=== PATIENT | male | born 1940 | race Caucasian/White ===

== ENCOUNTER 2020-05-20 11:01 | Outpatient (REF) | payer OTHER, MEDICARE, SELFPAY ==
--- NOTE | 2020-05-20 10:30 | MR_ITS ---
EXAMINATION: MR LUMBAR SPINE WITHOUT CONTRAST CLINICAL INFORMATION: Lower back pain. Bilateral leg pain. COMPARISON: Lumbar spine MRI dated 03/30/2017. TECHNIQUE: MRI of the lumbar spine was obtained using routine sequences without contrast. FINDINGS: VERTEBRAL BODIES AND PARASPINAL STRUCTURES: There is trace anterolisthesis of L4 in relation to L5, unchanged when compared with the prior examination. Vertebral body heights are maintained. No compression deformity. Bone marrow signal intensity is within normal limits. There is minimal height loss of the L2-L3 and L3-L4 intervertebral discs. There is minimal height loss of the L5-S1 intervertebral disc. All lumbar intervertebral discs demonstrate partial desiccation. The paraspinal musculature is within normal limits. The visualized aorta is normal in caliber. CONUS MEDULLARIS AND CAUDA EQUINA: Normal, terminating at the level of L1-L2. The cauda equina nerve roots appear intrinsically normal. SPINAL LEVELS: T12-L1: There is a shallow disc bulge and moderate facet arthropathy. No central canal or foraminal narrowing. L1-L2: There is a shallow left foraminal disc protrusion superimposed on a shallow circumferential disc bulge. There is mild to moderate bilateral facet arthropathy. The central canal is widely patent. No foraminal stenosis. Findings are similar to the prior study. L2-L3: There is a large circumferential disc herniation superimposed on moderate facet degenerative disease. There is severe narrowing of the subarticular recesses with probable mass effect on the descending L3 nerve roots bilaterally. The central canal remains patent. There is mild right foraminal narrowing and minimal left foraminal narrowing. Findings are similar to the prior examination. L3-L4: There is a large circumferential disc herniation with a superimposed left foraminal disc protrusion. There is moderate facet arthropathy and mild ligamentous hypertrophy. There is severe narrowing of the subarticular recesses with mass effect on the descending left L4 nerve root. The central canal remains widely patent. There is moderate narrowing of the right neural foramen and mild to moderate narrowing of the left neural foramen. Findings appear similar to the prior exam. L4-L5: There is a circumferential disc herniation and severe facet arthropathy bilaterally. There are surgical changes status post left hemilaminectomy. The central canal remains patent. There is moderate to severe narrowing of the right neural foramen with mass effect on the traversing right L4 nerve root. There is mild narrowing of the left neural foramen. Findings are similar to the prior study. L5-S1: There is a circumferential disc herniation and extensive facet arthropathy, left greater than right. The central canal remains patent. There is mild right foraminal narrowing and mild left foraminal narrowing without nerve root compression. Findings are similar to the prior study. IMPRESSION: There is multilevel degenerative spondylosis of lumbar spine. Findings are similar to the prior examination dated 03/30/2017. No canal stenosis. There are varying degrees of foraminal stenosis as described. At L4 severe narrowing of the right neural foramen results in mass effect on the traversing right L4 nerve root. There is narrowing of the subarticular recesses at L2-L3 and L3-L4 resulting in probable mass effect on the the L3 and L4 nerve roots.
== END 2020-05-20 11:02 | disposition home or self-care (01) ==
LOC: HO.MRI 11:01
PROVIDERS: PCP Internal Medicine; Visit Provider Family Medicine
DX: M54.5 Low back pain (principal); M62.81 Muscle weakness (generalized)
CPT/HCPCS: 72148

== ENCOUNTER 2021-07-24 13:46 | Inpatient (IN) | payer MEDICARE, SELFPAY ==
--- NOTE | ~2021-07-24 | XR_ITS ---
EXAMINATION: XR CHEST CLINICAL INFORMATION: Generalized weakness COMPARISON: Chest 09/05/2019 TECHNIQUE: Frontal view of the chest was obtained. FINDINGS: The lungs are well-expanded with patchy opacity in left lung base. Heart size and pulmonary vascularity is normal. There are mediastinal [place] and median sternotomy sutures from previous intervention. There is a right central venous port with its tip in mid SVC XR/XR chest 1V IMPRESSION: Expanded lungs with left basilar atelectasis or scarring.
--- NOTE | ~2021-07-24 | MR_ITS ---
EXAMINATION: MRI OF THE BRAIN WITHOUT CONTRAST CLINICAL INFORMATION: Assess for cerebellar stroke. COMPARISON: CT scan of the head earlier 07/24/2021. TECHNIQUE: MRI of the brain was obtained using routine sequences without contrast. FINDINGS: No diffusion abnormalities are identified to suggest an acute or subacute infarct. No mass effect or midline shift is seen. The ventricles and sulci are commensurately prominent consistent with moderate diffuse volume loss. There are mild scattered areas of hyperintense T2 and FLAIR signal in the periventricular and subcortical white matter, consistent with chronic microvascular ischemic changes. 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 No extra-axial fluid collections are seen. The brainstem and cerebellum are normal. No pathologic magnetic susceptibility artifact is identified on the gradient refocused acquisition. The craniovertebral junction, marrow signal, and midline structures are normal. There is susceptibility artifact from ACDF hardware in the visualized cervical spine at C4-C5. The major intracranial flow-voids at the level of the jena of [place] are preserved; the paraclinoid vessels are slightly ectatic. The dural venous sinus flow-voids are maintained. There have been bilateral lens extractions. The mastoid air cells are well-aerated. There is a retention cyst in the anterior left maxillary sinus. MR/MR head/brain wo con IMPRESSION: 1. There are no acute bleeds or territorial infarcts. No masses are demonstrated. 2. 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 There is diffuse volume loss.
--- NOTE | ~2021-07-24 | CT_ITS ---
EXAMINATION: CT HEAD WITHOUT CONTRAST (STROKE PROTOCOL) CLINICAL INFORMATION: Rigors, disequilibrium, weak right side on clinical exam, uncertain chronicity/timing. COMPARISON: None TECHNIQUE: Contiguous axial imaging was performed from the skull base to vertex without intravenous administration of contrast. Axial images are provided. This CT examination was performed using dose optimization techniques as appropriate, variously including the following: *Automated exposure control *Adjustment of mA and/or kV according to patient size (this includes techniques or standardized protocols for targeted exams where dose is matched to indication/reason for exam; i.e. extremities or head) *Use of iterative reconstruction technique DLP: 717 mGy-cm FINDINGS: There is no intracranial hemorrhage, hematoma, or extra-axial fluid collection. There are generalized atrophic changes with mild prominence of the ventricles and prominent cortical sulci and fissures and cisterns. No mass effect or edema. The ordonez-white matter differentiation appears well preserved . There is scattered periventricular white matter gliosis. This is likely related to chronic small vessel ischemic changes. There are ectatic intracranial internal carotid arteries with atherosclerotic calcifications. There is no visible acute territorial infarct or mass lesion. The calvarium appears intact. There is no pneumocephalus or orbital emphysema. No air-fluid levels visualized sinuses or middle ears or mastoids. Retention cyst or polyp anterior medial left maxillary sinus 1 cm. Results called to emergency department, Ava Luque PA-C at [address]/CT head/brain wo con IMPRESSION: 1. No acute intracranial abnormality. 2. Generalized atrophic changes. 3. Periventricular white matter gliosis, likely chronic small vessel ischemic change.
[2021-07-24 14:05] VITALS: BP 118/60; BP 128/72; PULSE 100; PULSE 110; RESP 16; TEMP 37.7; O2SAT 95; O2SAT 96; BMI 29.9
--- NOTE | 2021-07-24 14:15 | PC.NURSE ---
Addendum entered by Sweta Sandoval 07/24/21 18:33: Pt also noted with dusky fingertips and increase cap refill to ble upper ext. Ivis CARBAJAL notified Original Note: Pt presents to ED with c/o tremors and generalized weakness. On assessment ? right lower leg weaker than left, upper ext equal. Pt states tremors increased last night but had tremors for awhile and unk when right lower ext weakness started. A fib on tele, rate 90-110s. Speech is clear.
--- NOTE | 2021-07-24 14:33 | ECG_ITS ---
Test Reason : WEAKNESS Blood Pressure : / mmHG Vent. Rate : 094 BPM Atrial Rate : 000 BPM P-R Int : 000 ms QRS Dur : 128 ms QT Int : 404 ms P-R-T Axes : 000 -27 024 degrees QTc Int : 505 ms Atrial fibrillation with premature ventricular or aberrantly conducted complexes (vs atrial flutter) Right bundle branch block Cannot rule out Inferior infarct (cited on or before 04-SEP-2019) Abnormal ECG When compared with ECG of 05-SEP-2019 09:41, Rhythm change Referred By: Mari Branch Electronically Signed By:LAUREN BRADY
[2021-07-24 15:13] LABS: MANUAL DIFF FLAG NO
[2021-07-24 15:13] LABS: Glucose, Whole Blood 93 mg/dL (60-115)
[2021-07-24 15:15] LABS: Basophils Percent Auto 0.4 % (0-2); Eosinophils Percent Auto 0.5 % (0-4); Hematocrit 32.5 % (42.0-52.0); Hemoglobin 10.2 g/dl (14.0-18.0); Imm Gran Abs Auto 0.04 X10*3/uL (0.00-0.03); Imm Gran Pct Auto 0.5 % (0.0-0.4); Lymphocytes Absolute Auto 0.6 X10*3/uL (1.2-4.9); Mean Corpuscular HGB Conc 31.4 g/dl (31.0-36.0); Mean Corpuscular Hemoglobin 30.4 pg (27.0-33.0); Mean Platelet Volume 11.1 fL (9.4-12.4); Monocytes Absolute Auto 0.6 X10*3/uL (0.1-1.2); Monocytes Percent Auto 7.7 % (2-11); Neutrophils Absolute Auto 6.6 x10*3/uL (2.0-8.3); Neutrophils Percent Auto 83.9 % (45-73); Platelet Count 104 X10*3/uL (160-400); Red Blood Count 3.35 X10*6/uL (4.60-5.80); Red Cell Distribution Width 23.5 % (11.0-16.0); White Blood Count 7.8 X10*3/uL (4.8-10.8)
[2021-07-24 15:28] LABS: Alanine Aminotransferase 15 U/L (0-40); Albumin Level 3.4 g/dL (3.5-5.0); Alkaline Phosphatase 87 U/L (39-117); Anion Gap 13 (12-20); Aspartate Amino Transferase 22 U/L (5-37); Bilirubin Direct 0.8 mg/dL (0.0-0.5); Bilirubin Total 1.8 mg/dL (0.0-1.0); Blood Urea Nitrogen 12 mg/dL (9-16); Calcium 8.7 mg/dL (8.4-10.2); Carbon Dioxide 29 mmol/L (22-29); Chloride 102 mmol/L (96-108); Creatinine Clr Calc Pharmacy 68.7; Estimated Glomerular Filt Rate > 60; Glucose Random 96 mg/dL (60-115); Magnesium 1.8 mg/dL (1.6-2.6); Potassium 3.5 mmol/L (3.3-5.1); Sodium 140 mmol/L (135-145); Total Protein 5.6 g/dL (6.5-8.0)
--- NOTE | 2021-07-24 15:32 | ED_ITS ---
HPI - Weakness General Chief complaint: Weakness Stated complaint: GENERAL WEAKNESS Time Seen by Provider: 07/24/21 14:32 Source: patient Mode of arrival: EMS Limitations: no limitations History of Present Illness HPI Narrative: 81-year-old male presents for general weakness and upper extremity tremors. Patient was treated with chemo and radiation for esophageal cancer, he stop treatment 1 month ago. States at 3:00 a.m. last night, he woke up and had shaking in both of his arms left arm greater than right. He felt lightheaded and weak but he was able to walk to the bathroom. He felt a sense of disequilibrium, but he did not fall, he did not strike his head. He denies weakness on 1 side or the other. Denies chest pain, shortness of breath, dyspnea on exertion, leg swelling, cough, urinary symptoms, headache, blurry vision, fever. States his PCP sent here to the emergency room today to determine cause of his rigors. Patient states that it was hard to eat because of burning with swallowing due to his esophageal cancer treatment, but about a week ago he started eating and drinking well. Patient's oncologist is at [facility]. Patient's last chemo was July 23, he has an appointment with Oncology August 15. 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 [facility], Dr Garcia, has an appointment August 06. He hs an implanted watchman device for his a fib Related Data Home Medications Medication Instructions Recorded Confirmed amiodarone 100 mg tablet 100 mg PO DAILY 09/30/20 09/30/20 aspirin 81 mg tablet,delayed 81 mg PO DAILY 09/30/20 09/30/20 release atorvastatin 80 mg tablet 80 mg PO BEDTIME 09/30/20 09/30/20 clopidogrel 75 mg tablet 75 mg PO DAILY 09/30/20 09/30/20 furosemide 20 mg tablet 20 mg PO DAILY 09/30/20 09/30/20 gabapentin 800 mg tablet 900 mg PO BEDTIME 09/30/20 09/30/20 metoprolol tartrate 50 mg tablet 50 mg PO BID 09/30/20 09/30/20 pantoprazole 20 mg tablet,delayed 20 mg PO DAILY 09/30/20 09/30/20 release spironolactone 25 mg tablet 25 mg PO DAILY 09/30/20 09/30/20 Allergies Allergy/AdvReac Type Severity Reaction Status Date / Time niacin AdvReac Mild skin Verified 07/24/21 15:31 flushing tamsulosin [From Flomax] AdvReac Mild sweating Verified 07/24/21 15:31 Review of Systems Constitutional: Constitutional: Denies body ache(s), Denies chills, Reports fatigue, Denies fever(s), Denies headache(s), Denies malaise and Reports we akness Eyes: Eyes: Denies blurry vision and Denies diplopia ENT: Denies vertigo, Denies dizziness, Denies otalgia, Denies headache(s), Denies mouth pain, Reports disequilibrium, Denies post nasal drip, Denies sinus pain, Denies sinus pressure, Denies sore throat and Denies throat swelling Cardiovascular: Cardiovascular: Denies chest pain, Denies syncope, Denies leg edema, Denies lightheadedness, Denies Loss of Consciousness, Denies palpitations and Denies dyspnea Respiratory: Respiratory: Denies chest congestion, Denies cough and Denies dyspnea Gastrointestinal: Gastrointestinal: Denies abdominal pain, Denies hematochezia, Denies constipation, Denies diarrhea, Denies nausea and Denies vomiting Genitourinary: Genitourinary: Denies hematuria and Denies dysuria Musculoskeletal: Musculoskeletal: Reports no additional musculoskeletal compl aints and Denies numbness Neurologic: Denies Abnormal speech present, Denies confusion, Denies vertigo, Denies dizziness, Denies syncope, Denies headache(s), Denies focal weakness, Denies numbness, Denies Sensory deficit (Neuro), Reports tremor(s), Reports disequilibrium and Reports weakness Psychiatric: Psychiatric: Denies anxiety, Denies confusion and Denies depression Endocrine: Endocrine: Reports fatigue and Denies palpitations Allergic/Immunologic: Allergic/Immunologic: Denies throat swelling PMFSH Past Medical History Source: unable to obtain Medical History (Updated 07/24/21 @ 20:13 by RAVEN Dang) A-fib CAD (coronary artery disease) GERD (gastroesophageal reflux disease) History of kidney stones HTN (hypertension) Hyperlipidemia Prostate cancer Sleep apnea Tubular adenoma Surgical History H/O cervical spine surgery History of hydrocelectomy Hx of cataract surgery Hx of cholecystectomy Hx of knee surgery Hx of tonsillectomy Hx of vasectomy Family History Family History Mother Colon cancer Sister Colon cancer Social History Social History Alcohol intake: former Patient Tobacco Use Status: Former Tobacco user Use of substances other than those prescribed or required for medical reasons: No Advance Directives: No Advance Directives Information Provided: Yes Physical Exam Vital Signs: Vital Signs: Last Vital Signs Temp 99.8 F 07/24/21 14:05 Pulse 88 07/24/21 18:37 Resp 16 07/24/21 18:37 BP 131/70 07/24/21 18:37 Pulse Ox 98 07/24/21 18:37 BMI result Body Mass Index 29.9 Const: General: comfortable, no acute distress, alert and awake; No confusion Nutritional Appearance: obese Orientation/consciousness: patient oriented x3 and No confusion Limitations: no limitations HENMT: Head: Yes normal to inspection, Yes normocephalic and Yes atraumatic Ears: hearing grossly normal bilaterally, external ears normal, TM's normal bilaterally and EAC's normal General nose exam: Normal external nose present Face and sinus: Yes normal facial exam and Yes sinuses nontender Mouth: Normal oral and palatal mucosa present Throat: Yes posterior oropharynx normal Eyes: Conjunctivae: conjunctivae normal Pupils: Equal, round and reactive pupils present EOM: EOMs intact bilaterally and No Nystagmus present Neck: Neck: Yes full ROM, Yes no lymphadenopathy and Yes supple Resp: Effort & Inspection: normal respiratory effort and able to speak in complete sentences Auscultation: clear to auscultation bilaterally, no crackles, no rales, no rhonchi and no wheezes Cardio: Rate: regular rate Rhythm: regular rhythm Heart sounds: S1 normal heart sound present and S2 normal heart sound present GI: Inspection: Yes normal to inspection Palpation (GI): Soft to palpation, nontender, no guarding and not rigid Percussion: Yes normal to percussion Auscultation: normal bowel sounds Skin: General skin exam: no rashes or lesions noted Neuro: General: patient oriented x3, No confusion and Unable to assess gait Cranial nerves: Yes CN's II-XII intact bilaterally, Yes Facial sensation intact/muscles of mastication intact, Yes Equal, round and reactive pupils present, Yes Bilaterally intact EOM present, Yes Nystagmus not present, Yes Normal facial strength present, Yes Midline tongue present, Yes Ability to bilaterally rotate head present, Yes Ability to bilaterally elevate shoulders present and No Nystagmus present Cognition (Neuro): normal cognition Speech: No Abnormal speech present Gait exam (Neuro): Unable to assess gait Motor exam (neuro): Abnormal motor strength present (4/5 right UE, 1/5 right LE), Tremors during motor activity present (bilateral UE) and Motor abnormalites present Sensory Exam: No Sensory deficit (Neuro) Deep tendon reflexes (DTR's): Right patellar reflex intensity grade: 1+ and Left patellar reflex intensity grade: 1+ Coordination: [id number] test normal Romberg Test: Negative Pupils: Normal pupillary reactivity/response: bilateral Extrem: General: Yes normal to inspection and Yes full ROM Psych: Appearance: grossly normal Affect: normal affect Attitude: cooperative Thought process: Normal thought process present Course Course Course Narrative: I evaluated this patient at 15:10 81-year-old male with past medical history of esophageal cancer who just compl eted chemo and radiation 1 month ago, atrial fibrillation, and coronary artery disease with CABG, who is beta blocked and on Plavix and aspirin, presents for evaluation of rigors. On exam, patient is found to have right leg weakness, he cannot hold his right leg up against gravity, and mild right upper extremity weakness. Patient also has occasional jerks of his upper extremities and has a fine tremor in his left upper extremity. No other focal neurological deficits. Patient did not present complaining of weakness and denied weakness on 1 side or the other. Will get head CT and MRI, I had originally ordered head CT and CTA head and neck, but spoke to Dr Quiroz, who said a head CT and MRI would be sufficient to start work up for stroke. Upon discovery of right lower extremity weakness, patient cannot say when this weakness started. He was unaware that he was weak on his right side. Reevaluation(s) Reevaluation #1: Patient's EKG shows no acute ischemia, troponin is elevated is 63.1. No chest pain. Will repeat troponin in 3 hours Patient is mildly anemic at H&H of 10.2 and 32.5, platelets 104. Patient's lactic acid is 2.4. Chest x-ray negative, COVID negative Head CT shows no bleed, no acute stroke, general a trophic changes . Awaiting MRI and urine Reevaluation #2: MR/MR head/brain wo con IMPRESSION: 1. There are no acute bleeds or territorial infarcts. No masses are demonstrated. ? 2. 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 There is diffuse volume loss. Spoke to [facility] regarding patient, patient has no leukocytosis, is not neutropenic. Oncology did not think this was related to cancer. Awaiting urine Urine positive for UTI Repet fatou loyaws no 3 hour delta change; toponin was 63.1, now is 76.3. Repeat lactic is 1.3 Pt is admoitted by Dr Gauthier ? MDM - Weakness Lab Data Result diagrams: 07/24/21 14:58 07/24/21 14:58 Labs: Lab Results 07/24/21 07/24/21 07/24/21 Range/Units 14:58 14:58 14:58 WBC 7.8 (4.8-10.8) X10*3/uL RBC 3.35 L (4.60-5.80) X10*6/uL Hgb 10.2 L (14.0-18.0) g/dl Hct 32.5 L (42.0-52.0) % MCV 97.0 (80.0-98.0) fL MCH 30.4 (27.0-33.0) pg MCHC 31.4 (31.0-36.0) g/dl RDW 23.5 H (11.0-16.0) % Plt Count 104 L (160-400) X10*3/uL MPV 11.1 (9.4-12.4) fL Immature Gran % (Auto) 0.5 H (0.0-0.4) % Neut % (Auto) 83.9 H (45-73) % Lymph % (Auto) 7.0 L (20-40) % [place] % (Auto) 7.7 (2-11) % Eos % (Auto) 0.5 (0-4) % Baso % (Auto) 0.4 (0-2) % Lymph # (Auto) 0.6 L (1.2-4.9) X10*3/uL [place] # (Auto) 0.6 (0.1-1.2) X10*3/uL Eos # (Auto) 0.0 (0.0-0.4) X10*3/uL Baso # (Auto) 0.0 (0.0-0.2) X10*3/uL Abs Immat Gran (auto) 0.04 H (0.00-0.03) X10*3/uL Absolute Neuts (auto) 6.6 (2.0-8.3) x10*3/uL Absolute Nucleated RBC 0.000 (0.0-0.012) X10*3/uL Nucleated RBC % (auto) 0.0 (0.0-0.2) /100WBC PT (9.9-13.0) SEC INR (0.9-1.1) APTT (24.1-38.0) SEC Sodium 140 (135-145) mmol/L Potassium 3.5 (3.3-5.1) mmol/L Chloride 102 (96-108) mmol/L Carbon Dioxide 29 (22-29) mmol/L Anion Gap 13 (12-20) BUN 12 (9-16) mg/dL Creatinine 0.80 (0.5-1.4) mg/dL Estim Creat Clear Calc 68.7 Estimated GFR > 60 POC Glucose (60-115) mg/dL Random Glucose 96 (60-115) mg/dL Lactic Acid (0.5-2.0) mmol/L Lactic Acid F/U @ 2Hr (0.5-2.0) mmol/L Calcium 8.7 (8.4-10.2) mg/dL Phosphorus (2.7-4.5) mg/dL Magnesium 1.8 (1.6-2.6) mg/dL Total Bilirubin 1.8 H (0.0-1.0) mg/dL Direct Bilirubin 0.8 H (0.0-0.5) mg/dL AST 22 (5-37) U/L ALT 15 (0-40) U/L Alkaline Phosphatase 87 (39-117) U/L Troponin I High Sens (<3.5-35.0) ng/L Total Protein 5.6 L (6.5-8.0) g/dL Albumin 3.4 L (3.5-5.0) g/dL Urine Color Urine Appearance Urine pH (5.0-8.0) Ur Specific [place] (1.005-1.025) Urine Protein (NEG-TRACE) MG/DL Urine Glucose (UA) (NEG) MG/DL Urine Ketones (NEG) MG/DL Urine Blood (NEG) Urine Nitrite (NEG) Ur Leukocyte Esterase (NEG) Urine RBC (0) /HPF Urine WBC (0-4) /HPF Ur Squamous Epith Cells /LPF Urine Bacteria /LPF COVID-19 (JONO) Negative (Negative) COVID-19 Clin Com See Note 07/24/21 07/24/21 07/24/21 Range/Units 15:10 16:43 16:43 WBC (4.8-10.8) X10*3/uL RBC (4.60-5.80) X10*6/uL Hgb (14.0-18.0) g/dl Hct (42.0-52.0) % MCV (80.0-98.0) fL MCH (27.0-33.0) pg MCHC (31.0-36.0) g/dl RDW (11.0-16.0) % Plt Count (160-400) X10*3/uL MPV (9.4-12.4) fL Immature Gran % (Auto) (0.0-0.4) % Neut % (Auto) (45-73) % Lymph % (Auto) (20-40) % [place] % (Auto) (2-11) % Eos % (Auto) (0-4) % Baso % (Auto) (0-2) % Lymph # (Auto) (1.2-4.9) X10*3/uL [place] # (Auto) (0.1-1.2) X10*3/uL Eos # (Auto) (0.0-0.4) X10*3/uL Baso # (Auto) (0.0-0.2) X10*3/uL Abs Immat Gran (auto) (0.00-0.03) X10*3/uL Absolute Neuts (auto) (2.0-8.3) x10*3/uL Absolute Nucleated RBC (0.0-0.012) X10*3/uL Nucleated RBC % (auto) (0.0-0.2) /100WBC PT (9.9-13.0) SEC INR (0.9-1.1) APTT (24.1-38.0) SEC Sodium (135-145) mmol/L Potassium (3.3-5.1) mmol/L Chloride (96-108) mmol/L Carbon Dioxide (22-29) mmol/L Anion Gap (12-20) BUN (9-16) mg/dL Creatinine (0.5-1.4) mg/dL Estim Creat Clear Calc Estimated GFR POC Glucose 93 (60-115) mg/dL Random Glucose (60-115) mg/dL Lactic Acid 2.4 H* (0.5-2.0) mmol/L Lactic Acid F/U @ 2Hr (0.5-2.0) mmol/L Calcium (8.4-10.2) mg/dL Phosphorus (2.7-4.5) mg/dL Magnesium (1.6-2.6) mg/dL Total Bilirubin (0.0-1.0) mg/dL Direct Bilirubin (0.0-0.5) mg/dL AST (5-37) U/L ALT (0-40) U/L Alkaline Phosphatase (39-117) U/L Troponin I High Sens 63.1 H (<3.5-35.0) ng/L Total Protein (6.5-8.0) g/dL Albumin (3.5-5.0) g/dL Urine Color Urine Appearance Urine pH (5.0-8.0) Ur Specific [place] (1.005-1.025) Urine Protein (NEG-TRACE) MG/DL Urine Glucose (UA) (NEG) MG/DL Urine Ketones (NEG) MG/DL Urine Blood (NEG) Urine Nitrite (NEG) Ur Leukocyte Esterase (NEG) Urine RBC (0) /HPF Urine WBC (0-4) /HPF Ur Squamous Epith Cells /LPF Urine Bacteria /LPF COVID-19 (JONO) (Negative) COVID-19 Clin Com 07/24/21 07/24/21 07/24/21 Range/Units 19:18 19:18 19:18 WBC (4.8-10.8) X10*3/uL RBC (4.60-5.80) X10*6/uL Hgb (14.0-18.0) g/dl Hct (42.0-52.0) % MCV (80.0-98.0) fL MCH (27.0-33.0) pg MCHC (31.0-36.0) g/dl RDW (11.0-16.0) % Plt Count (160-400) X10*3/uL MPV (9.4-12.4) fL Immature Gran % (Auto) (0.0-0.4) % Neut % (Auto) (45-73) % Lymph % (Auto) (20-40) % [place] % (Auto) (2-11) % Eos % (Auto) (0-4) % Baso % (Auto) (0-2) % Lymph # (Auto) (1.2-4.9) X10*3/uL [place] # (Auto) (0.1-1.2) X10*3/uL Eos # (Auto) (0.0-0.4) X10*3/uL Baso # (Auto) (0.0-0.2) X10*3/uL Abs Immat Gran (auto) (0.00-0.03) X10*3/uL Absolute Neuts (auto) (2.0-8.3) x10*3/uL Absolute Nucleated RBC (0.0-0.012) X10*3/uL Nucleated RBC % (auto) (0.0-0.2) /100WBC PT 14.6 H (9.9-13.0) SEC INR 1.3 H (0.9-1.1) APTT 32.1 (24.1-38.0) SEC Sodium (135-145) mmol/L Potassium (3.3-5.1) mmol/L Chloride (96-108) mmol/L Carbon Dioxide (22-29) mmol/L Anion Gap (12-20) BUN (9-16) mg/dL Creatinine (0.5-1.4) mg/dL Estim Creat Clear Calc Estimated GFR POC Glucose (60-115) mg/dL Random Glucose (60-115) mg/dL Lactic Acid (0.5-2.0) mmol/L Lactic Acid F/U @ 2Hr 1.3 (0.5-2.0) mmol/L Calcium (8.4-10.2) mg/dL Phosphorus 2.9 (2.7-4.5) mg/dL Magnesium (1.6-2.6) mg/dL Total Bilirubin (0.0-1.0) mg/dL Direct Bilirubin (0.0-0.5) mg/dL AST (5-37) U/L ALT (0-40) U/L Alkaline Phosphatase (39-117) U/L Troponin I High Sens (<3.5-35.0) ng/L Total Protein (6.5-8.0) g/dL Albumin (3.5-5.0) g/dL Urine Color Urine Appearance Urine pH (5.0-8.0) Ur Specific [place] (1.005-1.025) Urine Protein (NEG-TRACE) MG/DL Urine Glucose (UA) (NEG) MG/DL Urine Ketones (NEG) MG/DL Urine Blood (NEG) Urine Nitrite (NEG) Ur Leukocyte Esterase (NEG) Urine RBC (0) /HPF Urine WBC (0-4) /HPF Ur Squamous Epith Cells /LPF Urine Bacteria /LPF COVID-19 (JONO) (Negative) COVID-19 Clin Com 07/24/21 07/24/21 Range/Units 19:18 19:47 WBC (4.8-10.8) X10*3/uL RBC (4.60-5.80) X10*6/uL Hgb (14.0-18.0) g/dl Hct (42.0-52.0) % MCV (80.0-98.0) fL MCH (27.0-33.0) pg MCHC (31.0-36.0) g/dl RDW (11.0-16.0) % Plt Count (160-400) X10*3/uL MPV (9.4-12.4) fL Immature Gran % (Auto) (0.0-0.4) % Neut % (Auto) (45-73) % Lymph % (Auto) (20-40) % [place] % (Auto) (2-11) % Eos % (Auto) (0-4) % Baso % (Auto) (0-2) % Lymph # (Auto) (1.2-4.9) X10*3/uL [place] # (Auto) (0.1-1.2) X10*3/uL Eos # (Auto) (0.0-0.4) X10*3/uL Baso # (Auto) (0.0-0.2) X10*3/uL Abs Immat Gran (auto) (0.00-0.03) X10*3/uL Absolute Neuts (auto) (2.0-8.3) x10*3/uL Absolute Nucleated RBC (0.0-0.012) X10*3/uL Nucleated RBC % (auto) (0.0-0.2) /100WBC PT (9.9-13.0) SEC INR (0.9-1.1) APTT (24.1-38.0) SEC Sodium (135-145) mmol/L Potassium (3.3-5.1) mmol/L Chloride (96-108) mmol/L Carbon Dioxide (22-29) mmol/L Anion Gap (12-20) BUN (9-16) mg/dL Creatinine (0.5-1.4) mg/dL Estim Creat Clear Calc Estimated GFR POC Glucose (60-115) mg/dL Random Glucose (60-115) mg/dL Lactic Acid (0.5-2.0) mmol/L Lactic Acid F/U @ 2Hr (0.5-2.0) mmol/L Calcium (8.4-10.2) mg/dL Phosphorus (2.7-4.5) mg/dL Magnesium (1.6-2.6) mg/dL Total Bilirubin (0.0-1.0) mg/dL Direct Bilirubin (0.0-0.5) mg/dL AST (5-37) U/L ALT (0-40) U/L Alkaline Phosphatase (39-117) U/L Troponin I High Sens 76.3 H (<3.5-35.0) ng/L Total Protein (6.5-8.0) g/dL Albumin (3.5-5.0) g/dL Urine Color YELLOW Urine Appearance CLOUDY Urine pH 6.0 (5.0-8.0) Ur Specific [place] 1.020 (1.005-1.025) Urine Protein 1+ H (NEG-TRACE) MG/DL Urine Glucose (UA) NEG (NEG) MG/DL Urine Ketones NEG (NEG) MG/DL Urine Blood 1+ H (NEG) Urine Nitrite POS H (NEG) Ur Leukocyte Esterase 3+ H (NEG) Urine RBC 0-2 (0) /HPF Urine WBC 30-49 H (0-4) /HPF Ur Squamous Epith Cells NONE /LPF Urine Bacteria 3+ /LPF COVID-19 ([facility]ONO) (Negative) COVID-19 Clin Com ECG Data Interpretation: Atrial fibrillation with a ventricular rate of 94. QRS 128, QTC 505, right bundle branch block, PVCs, no acute ischemia Discharge Plan Discharge Clinical Impression: Acute UTI, Weakness Patient Disposition: Admitted As Inpatient
[2021-07-24 15:34] LABS: COVID-19 Test Negative (Negative)
--- NOTE | 2021-07-24 16:00 | PC.NURSE ---
Pt to have MRI, however serial number need for implanted watchman device
[2021-07-24 16:14] VITALS: BP 131/57; PULSE 94; RESP 18; O2SAT 96
--- NOTE | 2021-07-24 16:19 | PC.NURSE ---
Serial number [id number] MRI aware
--- NOTE | 2021-07-24 16:57 | PC.NURSE ---
Difficult stick, phelbotomy called to assist with blood cx,lactic and coags
[2021-07-24 17:04] LABS: Lactic Acid 2.4 mmol/L (0.5-2.0)
--- NOTE | 2021-07-24 17:08 | PC.NURSE ---
Of unit to MRI at this time
[2021-07-24 17:13] LABS: Troponin-I High Sensitivity 63.1 ng/L (<3.5-35.0)
[2021-07-24] MEDS: 0.9 % Sodium Chloride 1,000 ML 999 ML IV (18:33)
[2021-07-24 18:37] VITALS: BP 131/70; PULSE 88; RESP 16; O2SAT 98
[2021-07-24 18:47] LABS: Reflex Lactate? Lactic Acid Added
[2021-07-24 19:39] LABS: INTERNATIONAL NORM RATIO 1.3 (0.9-1.1); Prothrombin Time 14.6 SEC (9.9-13.0)
[2021-07-24 19:42] LABS: Partial Thromboplastin Time 32.1 SEC (24.1-38.0)
[2021-07-24 19:46] LABS: ~Lactic Acid-LAB USE ONLY 1.3 mmol/L (0.5-2.0)
[2021-07-24 19:49] LABS: Phosphorus 2.9 mg/dL (2.7-4.5)
[2021-07-24 19:55] LABS: Appearance Urine CLOUDY; Color Urine YELLOW; Glucose Urine UA NEG (NEG); Leukocyte Esterase Urine 3+ (NEG); Nitrite Urine POS (NEG); UACC Culture Trigger YES; Urine Blood 1+ (NEG); Urine Ketones NEG (NEG); Urine Protein 1+ MG/DL (NEG-TRACE)
[2021-07-24 19:55] LABS: Troponin-I High Sensitivity 76.3 ng/L (<3.5-35.0)
[2021-07-24 20:03] LABS: Bacteria Urine 3+ /LPF; RBC Urine 0-2 /HPF (0); WBC Urine 30-49 /HPF (0-4)
[2021-07-24] MEDS: cefTRIAXone sodium 1 GM in 0.9 % Sodium Chloride 50 ML IV (20:46)
--- NOTE | 2021-07-24 21:10 | PHA.MEDREC ---
MED REC COMPLETE, NO ISSUES PATIENT GETS MOST OF HIS MEDICATIONS FROM [facility] Pharmacy Consult ? Medication Reconciliation Pharmacy has completed the medication reconciliation.
--- NOTE | 2021-07-24 22:11 | PM.IMHP ---
History of Present Illness Date of Service: 07/24/21 Chief Complaint: Chills and rigors 81-year-old male with a past medical history of hypertension, hyperlipidemia, CAD status post CABG, AFib status post Watchman procedure-not on anticoagulation, history of esophageal cancer status post chemo and radiotherapy-> last given on June 23, 2021; presented to the hospital today with a chief complaint of chills and rigors. Patient reports that he was doing fine until yesterday; this morning he woke up and noted to have chills and rigors; not feeling well; subsequently came to the ER for further evaluation. Denies any fevers or cough. Denies any urinary frequency or urgency. Denies any abdominal pain, nausea, vomiting. Also reported that he was on steady initially at home but denies any falls or trauma. Patient reports that he recently started to eat, and has been tolerating p.o. without any difficulty. Denies any concerns for aspiration. Denies any numbness tingling or focal weakness Denies any chest pain palpitations lightheadedness or dizziness. Review of all other systems is negative except mentioned above ER course: Per ER team PA mentioned thatinitially on presentation there were concerns for mild right-sided weakness; which subsequently improved when examined with the attending in the ER; patient had brain MRI done which showed no acute findings; urinalysis was abnormal consistent with UTI; given ceftriaxone. Admitted for further management. EKG nonischemic. Troponins were indeterminate. Admitted for further management [facility] Medical History (Updated 07/24/21 @ 20:13 by RAVEN Dang) A-fib CAD (coronary artery disease) GERD (gastroesophageal reflux disease) History of kidney stones HTN (hypertension) Hyperlipidemia Prostate cancer Sleep apnea Tubular adenoma Family History Mother Colon cancer Sister Colon cancer Pertinent family history: As mentioned above Surgical History H/O cervical spine surgery History of hydrocelectomy Hx of cataract surgery Hx of cholecystectomy Hx of knee surgery Hx of tonsillectomy Hx of vasectomy Social History Alcohol intake: former Patient Tobacco Use Status: Former Tobacco user Use of substances other than those prescribed or required for medical reasons: No Advance Directives: No Advance Directives Information Provided: Yes Meds Allergies Allergy/AdvReac Type Severity Reaction Status Date / Time niacin AdvReac Mild skin Verified 07/24/21 15:31 flushing tamsulosin [From Flomax] AdvReac Mild sweating Verified 07/24/21 15:31 Active Medications: Current Medications Acetaminophen (Acetaminophen 325 Mg Tablet) 650 mg PO Q6H PRN PRN Reason: Pain, Mild (Pain Scale 1-3) Ceftriaxone Sodium 1 gm/ (Sodium Chloride) 50 mls @ 100 mls/hr IV Q24H [facility] Melatonin (Melatonin 3 Mg Tablet) 6 mg PO BEDTIME PRN PRN Reason: Insomnia Senna (Sennosides 8.6 Mg Tablet) 17.2 mg PO BEDTIME PRN PRN Reason: Constipation Sodium Chloride (0.9 % Sodium Chloride Flush 3 Ml Syringe) 3 ml IVFLUSH QSHIFT [facility] Home Medications Medication Instructions Recorded Confirmed Last Taken Type aspirin 81 mg tablet,delayed 81 mg PO DAILY 09/30/20 07/24/21 07/24/21 History release atorvastatin 80 mg tablet 80 mg PO BEDTIME 09/30/20 07/24/21 Unknown History clopidogrel 75 mg tablet 75 mg PO DAILY 09/30/20 07/24/21 07/24/21 History furosemide 20 mg tablet 20 mg PO DAILY 09/30/20 07/24/21 07/24/21 History gabapentin 300 mg capsule 300 mg PO DAILY 07/24/21 07/24/21 07/24/21 History gabapentin 300 mg capsule 900 mg PO BEDTIME 07/24/21 07/24/21 Unknown History isosorbide mononitrate 30 mg 30 mg PO DAILY 07/24/21 07/24/21 07/24/21 History tablet,extended release 24 hr magnesium oxide 500 mg capsule 500 mg PO DAILY 07/24/21 07/24/21 07/24/21 History metoprolol succinate 25 mg 25 mg PO BID 07/24/21 07/24/21 07/24/21 History tablet,extended release 24 hr pantoprazole 40 mg tablet,delayed 40 mg PO DAILY@0630 07/24/21 07/24/21 07/24/21 History release tramadol 50 mg tablet 50 mg PO Q6H PRN 07/24/21 07/24/21 Unknown History Physical Exam Vital Signs and Narrative: Vital Signs: Last Vital Signs Temp 99.8 F 07/24/21 14:05 Pulse 88 07/24/21 18:37 Resp 16 07/24/21 18:37 BP 131/70 07/24/21 18:37 Pulse Ox 98 07/24/21 18:37 BMI result Body Mass Index 29.9 Gen: Appears be in no acute distress HEENT: NCAT, Moist mucosa. Pulmonary: Vesicular breath sounds, fair air entry CVS: Normal S1-S2 Abdomen: BS+, Soft, Nontender Extremities: Warm well perfused Neuro: Alert and awake. Grossly nonfocal; no cerebellar signs. Results Labs CBC and Chem 7: 07/24/21 14:58 07/24/21 14:58 Labs: Laboratory Results - last 24 hr 07/24/21 07/24/21 07/24/21 14:58 14:58 14:58 MCV 97.0 MCH 30.4 MCHC 31.4 RDW 23.5 H Plt Count 104 L MPV 11.1 Immature Gran % (Auto) 0.5 H Neut % (Auto) 83.9 H Lymph % (Auto) 7.0 L [place] % (Auto) 7.7 Eos % (Auto) 0.5 Baso % (Auto) 0.4 Lymph # (Auto) 0.6 L [place] # (Auto) 0.6 Eos # (Auto) 0.0 Baso # (Auto) 0.0 Abs Immat Gran (auto) 0.04 H Absolute Neuts (auto) 6.6 Absolute Nucleated RBC 0.000 Nucleated RBC % (auto) 0.0 PT INR APTT Anion Gap 13 Estim Creat Clear Calc 68.7 Estimated GFR > 60 POC Glucose Random Glucose 96 Lactic Acid Lactic Acid F/U @ 2Hr Calcium 8.7 Phosphorus Magnesium 1.8 Total Bilirubin 1.8 H Direct Bilirubin 0.8 H AST 22 ALT 15 Alkaline Phosphatase 87 Troponin I High Sens Total Protein 5.6 L Albumin 3.4 L Urine Color Urine Appearance Urine pH Ur Specific [place] Urine Protein Urine Glucose (UA) Urine Ketones Urine Blood Urine Nitrite Ur Leukocyte Esterase Urine RBC Urine WBC Ur Squamous Epith Cells Urine Bacteria COVID-19 (JONO) Negative COVID-19 Clin Com See Note 07/24/21 07/24/21 07/24/21 15:10 16:43 16:43 MCV MCH MCHC RDW Plt Count MPV Immature Gran % (Auto) Neut % (Auto) Lymph % (Auto) [place] % (Auto) Eos % (Auto) Baso % (Auto) Lymph # (Auto) [place] # (Auto) Eos # (Auto) Baso # (Auto) Abs Immat Gran (auto) Absolute Neuts (auto) Absolute Nucleated RBC Nucleated RBC % (auto) PT INR APTT Anion Gap Estim Creat Clear Calc Estimated GFR POC Glucose 93 Random Glucose Lactic Acid 2.4 H* Lactic Acid F/U @ 2Hr Calcium Phosphorus Magnesium Total Bilirubin Direct Bilirubin AST ALT Alkaline Phosphatase Troponin I High Sens 63.1 H Total Protein Albumin Urine Color Urine Appearance Urine pH Ur Specific [place] Urine Protein Urine Glucose (UA) Urine Ketones Urine Blood Urine Nitrite Ur Leukocyte Esterase Urine RBC Urine WBC Ur Squamous Epith Cells Urine Bacteria COVID-19 (JONO) COVID-19 [employer] 07/24/21 07/24/21 07/24/21 19:18 19:18 19:18 MCV MCH MCHC RDW Plt Count MPV Immature Gran % (Auto) Neut % (Auto) Lymph % (Auto) [place] % (Auto) Eos % (Auto) Baso % (Auto) Lymph # (Auto) [place] # (Auto) Eos # (Auto) Baso # (Auto) Abs Immat Gran (auto) Absolute Neuts (auto) Absolute Nucleated RBC Nucleated RBC % (auto) PT 14.6 H INR 1.3 H APTT 32.1 Anion Gap Estim Creat Clear Calc Estimated GFR POC Glucose Random Glucose Lactic Acid Lactic Acid F/U @ 2Hr 1.3 Calcium Phosphorus 2.9 Magnesium Total Bilirubin Direct Bilirubin AST ALT Alkaline Phosphatase Troponin I High Sens Total Protein Albumin Urine Color Urine Appearance Urine pH Ur Specific [place] Urine Protein Urine Glucose (UA) Urine Ketones Urine Blood Urine Nitrite Ur Leukocyte Esterase Urine RBC Urine WBC Ur Squamous Epith Cells Urine Bacteria COVID-19 (JONO) COVID-19 [employer] Com 07/24/21 07/24/21 19:18 19:47 MCV MCH MCHC RDW Plt Count MPV Immature Gran % (Auto) Neut % (Auto) Lymph % (Auto) [place] % (Auto) Eos % (Auto) Baso % (Auto) Lymph # (Auto) [place] # (Auto) Eos # (Auto) Baso # (Auto) Abs Immat Gran (auto) Absolute Neuts (auto) Absolute Nucleated RBC Nucleated RBC % (auto) PT INR APTT Anion Gap Estim Creat Clear Calc Estimated GFR POC Glucose Random Glucose Lactic Acid Lactic Acid F/U @ 2Hr Calcium Phosphorus Magnesium Total Bilirubin Direct Bilirubin AST ALT Alkaline Phosphatase Troponin I High Sens 76.3 H Total Protein Albumin Urine Color YELLOW Urine Appearance CLOUDY Urine pH 6.0 Ur Specific [place] 1.020 Urine Protein 1+ H Urine Glucose (UA) NEG Urine Ketones NEG Urine Blood 1+ H Urine Nitrite POS H Ur Leukocyte Esterase 3+ H Urine RBC 0-2 Urine WBC 30-49 H Ur Squamous Epith Cells NONE Urine Bacteria 3+ COVID-19 (JONO) COVID-19 Clin Com Imaging Radiologist's Impressions: Impressions Chest X-Ray 07/24/21 14:55 IMPRESSION: Expanded lungs with left basilar atelectasis or scarring. Head CT 07/24/21 15:48 IMPRESSION: 1. No acute intracranial abnormality. 2. Generalized atrophic changes. 3. Periventricular white matter gliosis, likely chronic small vessel ischemic change. Brain MRI 07/24/21 18:30 IMPRESSION: 1. There are no acute bleeds or territorial infarcts. No masses are demonstrated. 2. 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 There is diffuse volume loss. Assessment and Plan (1) Acute UTI: Status: Acute 81-year-old male with a past medical history of hypertension, hyperlipidemia, CAD status post CABG, AFib status post Watchman procedure-not on anticoagulation, history of esophageal cancer status post chemo and radiotherapy-> last given on June 23, 2021; presented to the hospital today with a chief complaint of chills and rigors. Noted to have UTI. Admitted for further management. UTI: Continue ceftriaxone. Follow up cultures. History of esophageal cancer: Patient is status post chemotherapy/radiotherapy. Last received in June of 2021. ER team notified patient's oncologist at [facility] who suggested admission to the hospital at least for today for observation. Patient reports that he has been tolerating p.o.. Speech and swallow eval History of hypertension/hyperlipidemia/CAD: Continue home medications. Hold home furosemide for now. DVT prophylaxis: SCD boots Code status: Full code Quality Stroke Does the patient have a stroke diagnosis?: No VTE Prior VTE?: No VTE Risk Level:: Medical - moderate - high VTE Device Contraindication: N/A - Device Ordered VTE Drug Contraindication: Treatment Not Indicated
[2021-07-24 22:38] VITALS: BP 137/67; PULSE 95; RESP 15; TEMP 36.9; O2SAT 94
[2021-07-25 04:02] VITALS: PULSE 89; RESP 20; O2SAT 98
[2021-07-25] MEDS: Omeprazole 20 MG CAPSULE.DR PO (06:30)
[2021-07-25 07:00] LABS: MANUAL DIFF FLAG NO
[2021-07-25 07:05] LABS: Basophils Percent Auto 0.2 % (0-2); Eosinophils Absolute Auto 0.1 X10*3/uL (0.0-0.4); Eosinophils Percent Auto 0.6 % (0-4); Hematocrit 32.3 % (42.0-52.0); Hemoglobin 10.5 g/dl (14.0-18.0); Imm Gran Abs Auto 0.03 X10*3/uL (0.00-0.03); Imm Gran Pct Auto 0.3 % (0.0-0.4); Lymphocytes Absolute Auto 0.5 X10*3/uL (1.2-4.9); Lymphocytes Percent Auto 5.6 % (20-40); Mean Corpuscular HGB Conc 32.5 g/dl (31.0-36.0); Mean Corpuscular Hemoglobin 31.3 pg (27.0-33.0); Mean Corpuscular Volume 96.4 fL (80.0-98.0); Mean Platelet Volume 10.7 fL (9.4-12.4); Monocytes Absolute Auto 0.8 X10*3/uL (0.1-1.2); Monocytes Percent Auto 8.5 % (2-11); Neutrophils Absolute Auto 7.7 x10*3/uL (2.0-8.3); Neutrophils Percent Auto 84.8 % (45-73); Red Blood Count 3.35 X10*6/uL (4.60-5.80); Red Cell Distribution Width 23.2 % (11.0-16.0); White Blood Count 9.1 X10*3/uL (4.8-10.8)
[2021-07-25 07:09] LABS: Platelet Count 92 X10*3/uL (160-400)
[2021-07-25 07:17] LABS: Anion Gap 12 (12-20); Blood Urea Nitrogen 11 mg/dL (9-16); Calcium 8.3 mg/dL (8.4-10.2); Carbon Dioxide 25 mmol/L (22-29); Chloride 105 mmol/L (96-108); Creatinine Clr Calc Pharmacy 83.3; Estimated Glomerular Filt Rate > 60; Glucose Random 98 mg/dL (60-115); Potassium 3.2 mmol/L (3.3-5.1); Sodium 139 mmol/L (135-145)
[2021-07-25 08:59] VITALS: BP 116/61; PULSE 86; RESP 14; TEMP 36.4; O2SAT 95
--- NOTE | 2021-07-25 09:27 | PC.NURSE ---
Morning BP 116/61. MD Granger made aware. states pt may have both his imdur and metoprolol.
[2021-07-25] MEDS: Aspirin Enteric Coated 81 MG TABLET.DR PO (09:34)
[2021-07-25] MEDS: Gabapentin 300 MG CAPSULE PO (09:34)
[2021-07-25] MEDS: Metoprolol Succinate ER 25 MG TAB.ER.24H PO (09:34)
[2021-07-25] MEDS: Isosorbide Mononitrate 30 MG TAB.ER.24H PO (09:34)
[2021-07-25] MEDS: Clopidogrel Bisulfate 75 MG TABLET PO (09:35)
--- NOTE | 2021-07-25 11:02 | P.DS_ITS ---
DS: Providers Provider Date of Service: 07/25/21 Date of admission: 07/24/21 20:08 Primary care physician: Rolando Neal MD DS: Diagnosis Discharge Diagnosis (1) Acute UTI: Status: Acute DS: Summary Hospital Course Hospital Course: Patient was admitted for weakness due to urinary tract infection. He was given ceftriaxone. His urine cultures are growing Gram-negative rods, blood cultures are still pending. Patient is feeling much better today. We discussed staying in the hospital until cultures are finalized, however, patient is interested in being home for the holidays and given that he is feeling much better and is reliable for follow-up will be discharged on cefuroxime and he is instructed to follow up with his primary care physician for the final cultures and to adjust meds as needed. He should return to ED if symptoms worsen. Time Spent with Patient Time attestation: Total time spent providing and/or coordinating discharge services: Discharge coordination time: Greater than 30 minutes Quality: Stroke Does the patient have a stroke diagnosis?: No Physical Exam Vital Signs: Vital Signs: Last Vital Signs Temp 97.6 F 07/25/21 08:59 Pulse 86 07/25/21 08:59 Resp 14 07/25/21 08:59 BP 116/61 07/25/21 08:59 Pulse Ox 95 07/25/21 08:59 BMI result Body Mass Index 29.9 General: AO X 3, no acute distress Resp: CTA bilateral, no accessory muscles used CVS: S1,S2,RRR GI: soft, non tender, non distended Neuro: motor grossly intact, alert Psych: appropriate affect, appropriate insight DS: Data Data Completed and Pending Labs on day of discharge: Laboratory Results - last 24 hr 07/24/21 07/24/21 07/24/21 14:58 14:58 14:58 WBC 7.8 RBC 3.35 L Hgb 10.2 L Hct 32.5 L MCV 97.0 MCH 30.4 MCHC 31.4 RDW 23.5 H Plt Count 104 L MPV 11.1 Immature Gran % (Auto) 0.5 H Neut % (Auto) 83.9 H Lymph % (Auto) 7.0 L [place] % (Auto) 7.7 Eos % (Auto) 0.5 Baso % (Auto) 0.4 Lymph # (Auto) 0.6 L [place] # (Auto) 0.6 Eos # (Auto) 0.0 Baso # (Auto) 0.0 Abs Immat Gran (auto) 0.04 H Absolute Neuts (auto) 6.6 Absolute Nucleated RBC 0.000 Nucleated RBC % (auto) 0.0 PT INR APTT Sodium 140 Potassium 3.5 Chloride 102 Carbon Dioxide 29 Anion Gap 13 BUN 12 Creatinine 0.80 Estim Creat Clear Calc 68.7 Estimated GFR > 60 POC Glucose Random Glucose 96 Lactic Acid Lactic Acid F/U @ 2Hr Calcium 8.7 Phosphorus Magnesium 1.8 Total Bilirubin 1.8 H Direct Bilirubin 0.8 H AST 22 ALT 15 Alkaline Phosphatase 87 Troponin I High Sens Total Protein 5.6 L Albumin 3.4 L Urine Color Urine Appearance Urine pH Ur Specific [place] Urine Protein Urine Glucose (UA) Urine Ketones Urine Blood Urine Nitrite Ur Leukocyte Esterase Urine RBC Urine WBC Ur Squamous Epith Cells Urine Bacteria COVID-19 (JONO) Negative COVID-[employer] Com See Note 07/24/21 07/24/21 07/24/21 15:10 16:43 16:43 WBC RBC Hgb Hct MCV MCH MCHC RDW Plt Count MPV Immature Gran % (Auto) Neut % (Auto) Lymph % (Auto) [place] % (Auto) Eos % (Auto) Baso % (Auto) Lymph # (Auto) [place] # (Auto) Eos # (Auto) Baso # (Auto) Abs Immat Gran (auto) Absolute Neuts (auto) Absolute Nucleated RBC Nucleated RBC % (auto) PT INR APTT Sodium Potassium Chloride Carbon Dioxide Anion Gap BUN Creatinine Estim Creat Clear Calc Estimated GFR POC Glucose 93 Random Glucose Lactic Acid 2.4 H* Lactic Acid F/U @ 2Hr Calcium Phosphorus Magnesium Total Bilirubin Direct Bilirubin AST ALT Alkaline Phosphatase Troponin I High Sens 63.1 H Total Protein Albumin Urine Color Urine Appearance Urine pH Ur Specific [place] Urine Protein Urine Glucose (UA) Urine Ketones Urine Blood Urine Nitrite Ur Leukocyte Esterase Urine RBC Urine WBC Ur Squamous Epith Cells Urine Bacteria COVID-19 (JONO) COVID-[employer] 07/24/21 07/24/21 07/24/21 19:18 19:18 19:18 WBC RBC Hgb Hct MCV MCH MCHC RDW Plt Count MPV Immature Gran % (Auto) Neut % (Auto) Lymph % (Auto) [place] % (Auto) Eos % (Auto) Baso % (Auto) Lymph # (Auto) [place] # (Auto) Eos # (Auto) Baso # (Auto) Abs Immat Gran (auto) Absolute Neuts (auto) Absolute Nucleated RBC Nucleated RBC % (auto) PT 14.6 H INR 1.3 H APTT 32.1 Sodium Potassium Chloride Carbon Dioxide Anion Gap BUN Creatinine Estim Creat Clear Calc Estimated GFR POC Glucose Random Glucose Lactic Acid Lactic Acid F/U @ 2Hr 1.3 Calcium Phosphorus 2.9 Magnesium Total Bilirubin Direct Bilirubin AST ALT Alkaline Phosphatase Troponin I High Sens Total Protein Albumin Urine Color Urine Appearance Urine pH Ur Specific [place] Urine Protein Urine Glucose (UA) Urine Ketones Urine Blood Urine Nitrite Ur Leukocyte Esterase Urine RBC Urine WBC Ur Squamous Epith Cells Urine Bacteria COVID-19 (JONO) COVID-19 Clin Com 07/24/21 07/24/21 07/25/21 19:18 19:47 06:45 WBC 9.1 RBC 3.35 L Hgb 10.5 L Hct 32.3 L MCV 96.4 MCH 31.3 MCHC 32.5 RDW 23.2 H Plt Count 92 L MPV 10.7 Immature Gran % (Auto) 0.3 Neut % (Auto) 84.8 H Lymph % (Auto) 5.6 L [place] % (Auto) 8.5 Eos % (Auto) 0.6 Baso % (Auto) 0.2 Lymph # (Auto) 0.5 L [place] # (Auto) 0.8 Eos # (Auto) 0.1 Baso # (Auto) 0.0 Abs Immat Gran (auto) 0.03 Absolute Neuts (auto) 7.7 Absolute Nucleated RBC 0.000 Nucleated RBC % (auto) 0.0 PT INR APTT Sodium Potassium Chloride Carbon Dioxide Anion Gap BUN Creatinine Estim Creat Clear Calc Estimated GFR POC Glucose Random Glucose Lactic Acid Lactic Acid F/U @ 2Hr Calcium Phosphorus Magnesium Total Bilirubin Direct Bilirubin AST ALT Alkaline Phosphatase Troponin I High Sens 76.3 H Total Protein Albumin Urine Color YELLOW Urine Appearance CLOUDY Urine pH 6.0 Ur Specific [place] 1.020 Urine Protein 1+ H Urine Glucose (UA) NEG Urine Ketones NEG Urine Blood 1+ H Urine Nitrite POS H Ur Leukocyte Esterase 3+ H Urine RBC 0-2 Urine WBC 30-49 H Ur Squamous Epith Cells NONE Urine Bacteria 3+ COVID-19 (JONO) COVID-19 Clin Com 07/25/21 06:45 WBC RBC Hgb Hct MCV MCH MCHC RDW Plt Count MPV Immature Gran % (Auto) Neut % (Auto) Lymph % (Auto) [place] % (Auto) Eos % (Auto) Baso % (Auto) Lymph # (Auto) [place] # (Auto) Eos # (Auto) Baso # (Auto) Abs Immat Gran (auto) Absolute Neuts (auto) Absolute Nucleated RBC Nucleated RBC % (auto) PT INR APTT Sodium 139 Potassium 3.2 L Chloride 105 Carbon Dioxide 25 Anion Gap 12 BUN 11 Creatinine 0.66 Estim Creat Clear Calc 83.3 Estimated GFR > 60 POC Glucose Random Glucose 98 Lactic Acid Lactic Acid F/U @ 2Hr Calcium 8.3 L Phosphorus Magnesium Total Bilirubin Direct Bilirubin AST ALT Alkaline Phosphatase Troponin I High Sens Total Protein Albumin Urine Color Urine Appearance Urine pH Ur Specific [place] Urine Protein Urine Glucose (UA) Urine Ketones Urine Blood Urine Nitrite Ur Leukocyte Esterase Urine RBC Urine WBC Ur Squamous Epith Cells Urine Bacteria COVID-19 (JONO) COVID-19 Clin Com Preliminary micro results at discharge 07/24/21 Unknown Urine Culture - Preliminary Urine clean catch - Urine ordonez top Gram negative juan Discharge Plan Discharge Patient Disposition: Home, Self-Care Discharge Diagnosis: uti Referrals: Rolando Neal MD [Primary Care Provider] - 1 Week Discharge Medications: New cefuroxime axetil 500 mg tablet 500 mg PO Q12H Qty: 10 RF: 0 Continued atorvastatin 80 mg Tablet 80 mg PO BEDTIME RF: 0 clopidogrel 75 mg Tablet 75 mg PO DAILY RF: 0 aspirin 81 mg Tablet,Delayed Release (Dr/Ec) 81 mg PO DAILY RF: 0 furosemide 20 mg Tablet 20 mg PO DAILY RF: 0 pantoprazole 40 mg Tablet,Delayed Release (Dr/Ec) 40 mg PO DAILY@0630 RF: 0 gabapentin 300 mg Capsule 300 mg PO DAILY RF: 0 gabapentin 300 mg Capsule 900 mg PO BEDTIME RF: 0 magnesium oxide 500 mg Capsule 500 mg PO DAILY RF: 0 metoprolol succinate 25 mg Tablet Extended Release 24 Hr 25 mg PO BID RF: 0 isosorbide mononitrate 30 mg Tablet Extended Release 24 Hr 30 mg PO DAILY RF: 0 tramadol 50 mg Tablet 50 mg PO Q6H PRN (Reason: Pain (Scale Score 4-6)) RF: 0 Discharge Orders: Discharge Order (Routine); Ordered 07/25/21 Ordered By: Flaco Granger Diet: advance to usual diet Activity on Discharge: As tolerated Stand Alone Forms: Patient Portal Discharge page Care Plan Goals: recovery Health Concerns: uti Plan of Treatment: cefuroxime for now, follow up cultures and adjust if needed, return to ED for worsening symtpoms Assessment: see above
--- NOTE | 2021-07-25 11:50 | MHC.CM.PN ---
pt lives c his in their home. he reports that he is independent in his care. he drives a car and tries to stay active. he does not use any AD c ambulation and has no svcs in the home. pt has 2 sons that live in the area and his who can all help him should he have any needs. his son will be providing transportation at dc. pt denies the need for vna at dc. dc plan is home no svcs. cm to cont. to follow.
== END 2021-07-25 12:06 | disposition home or self-care (01) | DRG 690 ==
LOC: HO.ED 20:13 → HO.EDOVER 20:18
PROVIDERS: Physician Assistant; Admitting Provider Hospitalist; Emergency Provider Emergency Medicine; PCP Internal Medicine; Visit Provider Internal Medicine
DX: N39.0 Urinary tract infection, site not specified (principal); C15.9 Malignant neoplasm of esophagus, unspecified; I48.91 Unspecified atrial fibrillation; I25.10 Atherosclerotic heart disease of native coronary artery without angina pectoris; Z95.1 Presence of aortocoronary bypass graft; Z95.818 Presence of other cardiac implants and grafts; Z20.822 Contact with and (suspected) exposure to COVID-19; Z79.02 Long term (current) use of antithrombotics/antiplatelets; Z79.82 Long term (current) use of aspirin; Z79.899 Other long term (current) drug therapy
CPT/HCPCS: 36415; 70450; 70551; 71045; 80048; 80076; 81001; 82947; 83605; 83735; 84100; 84484; 85025; 85610; 85730; 87040; 87086; 87088; 87186; 87635; 93005; 99285; J0696

== ENCOUNTER 2022-04-16 14:58 | Outpatient (REF) | payer MEDICARE, SELFPAY ==
[2022-04-16 15:13] LABS: MANUAL DIFF FLAG NO
[2022-04-16 15:37] LABS: Basophils Percent Auto 0.7 % (0-2)
[2022-04-16 15:44] LABS: Eosinophils Absolute Auto 0.1 X10*3/uL (0.0-0.4); Eosinophils Percent Auto 2.4 % (0-4); Hematocrit 24.2 % (42.0-52.0); Imm Gran Abs Auto 0.01 X10*3/uL (0.00-0.03); Imm Gran Pct Auto 0.2 % (0.0-0.4); Lymphocytes Percent Auto 16.4 % (20-40); Mean Corpuscular HGB Conc 28.5 g/dl (31.0-36.0); Mean Corpuscular Hemoglobin 20.5 pg (27.0-33.0); Mean Corpuscular Volume 71.8 fL (80.0-98.0); Monocytes Absolute Auto 0.7 X10*3/uL (0.1-1.2); Monocytes Percent Auto 12.8 % (2-11); Neutrophils Absolute Auto 3.9 x10*3/uL (2.0-8.3); Neutrophils Percent Auto 67.5 % (45-73); Platelet Count 198 X10*3/uL (160-400); Red Blood Count 3.37 X10*6/uL (4.60-5.80); Red Cell Distribution Width 19.2 % (11.0-16.0); White Blood Count 5.8 X10*3/uL (4.8-10.8)
[2022-04-16 15:57] LABS: Hemoglobin 6.9 g/dl (14.0-18.0)
== END 2022-04-16 14:59 | disposition home or self-care (01) ==
LOC: HO.LAB 14:58
PROVIDERS: PCP Internal Medicine; Visit Provider Internal Medicine
DX: D64.9 Anemia, unspecified (principal)
CPT/HCPCS: 36415; 85025

== ENCOUNTER 2022-04-17 07:20 | Outpatient (REF) | payer MEDICARE, SELFPAY | END 2022-04-17 07:21 | disposition home or self-care (01) | LOC: HO.MDS 07:20 | PROVIDERS: Visit Provider Internal Medicine | DX: D64.9 Anemia, unspecified (principal); I25.10 Atherosclerotic heart disease of native coronary artery without angina pectoris; I48.91 Unspecified atrial fibrillation; Z95.1 Presence of aortocoronary bypass graft | CPT/HCPCS: 36430; 86850; 86900; 86901; 86923; P9016 ==

== ENCOUNTER 2022-05-05 11:05 | Outpatient (REF) | payer MEDICARE, SELFPAY ==
[2022-05-05 13:44] LABS: MANUAL DIFF FLAG NO
[2022-05-05 14:00] LABS: Basophils Absolute Auto 0.1 X10*3/uL (0.0-0.2); Basophils Percent Auto 0.7 % (0-2); Eosinophils Absolute Auto 0.2 X10*3/uL (0.0-0.4); Eosinophils Percent Auto 2.2 % (0-4); Hematocrit 29.4 % (42.0-52.0); Hemoglobin 8.8 g/dl (14.0-18.0); Imm Gran Abs Auto 0.02 X10*3/uL (0.00-0.03); Imm Gran Pct Auto 0.3 % (0.0-0.4); Lymphocytes Absolute Auto 0.9 X10*3/uL (1.2-4.9); Lymphocytes Percent Auto 11.6 % (20-40); Mean Corpuscular HGB Conc 29.9 g/dl (31.0-36.0); Mean Corpuscular Hemoglobin 22.3 pg (27.0-33.0); Mean Corpuscular Volume 74.6 fL (80.0-98.0); Mean Platelet Volume 11.1 fL (9.4-12.4); Monocytes Absolute Auto 0.8 X10*3/uL (0.1-1.2); Monocytes Percent Auto 10.4 % (2-11); Neutrophils Absolute Auto 5.6 x10*3/uL (2.0-8.3); Neutrophils Percent Auto 74.8 % (45-73); Platelet Count 224 X10*3/uL (160-400); Red Blood Count 3.94 X10*6/uL (4.60-5.80); Red Cell Distribution Width 23.9 % (11.0-16.0); White Blood Count 7.4 X10*3/uL (4.8-10.8)
[2022-05-05 14:19] LABS: Alanine Aminotransferase 16 U/L (0-40); Albumin Level 4.1 g/dL (3.5-5.0); Alkaline Phosphatase 123 U/L (39-117); Anion Gap 16 (12-20); Aspartate Amino Transferase 19 U/L (5-37); Bilirubin Total 0.9 mg/dL (0.0-1.0); Blood Urea Nitrogen 24 mg/dL (9-16); Carbon Dioxide 26 mmol/L (22-29); Chloride 98 mmol/L (96-108); Cholesterol 90 mg/dL; Estimated Glomerular Filt Rate > 60; Glucose Random 108 mg/dL (60-115); Iron 22 mcg/dL (45-160); Percent Iron Saturation 6 % (15-50); Sodium 136 mmol/L (135-145); Total Iron Binding Capacity 380 mcg/dL (228-428); Total Protein 6.3 g/dL (6.5-8.0); Unsaturated Iron Binding 358 ug/dL
== END 2022-05-05 11:06 | disposition home or self-care (01) ==
LOC: HO.10HDL 11:05
PROVIDERS: Visit Provider Internal Medicine
DX: D64.9 Anemia, unspecified (principal); K21.9 Gastro-esophageal reflux disease without esophagitis; I25.10 Atherosclerotic heart disease of native coronary artery without angina pectoris
CPT/HCPCS: 36415; 80053; 82465; 83540; 85025

== ENCOUNTER 2022-06-09 07:20 | Outpatient (REF) | payer MEDICARE, SELFPAY | END 2022-06-09 07:21 | disposition home or self-care (01) | LOC: HO.MDS 07:20 | PROVIDERS: Visit Provider Internal Medicine | DX: D64.9 Anemia, unspecified (principal) | CPT/HCPCS: 36430; 86850; 86900; 86901; 86923; P9016 ==

== ENCOUNTER 2022-06-30 09:57 | Outpatient (REF) | payer MEDICARE, SELFPAY ==
[2022-06-30 11:36] LABS: Influenza A PCR NEGATIVE (Negative); Influenza B PCR NEGATIVE (Negative); Resp Syncy Virus RNA Qual PCR POSITIVE (Negative); SARS COV2 PCR INHOUSE NEGATIVE (Negative)
== END 2022-06-30 09:58 | disposition home or self-care (01) ==
LOC: HO.10HDLNP 09:57
PROVIDERS: Visit Provider Internal Medicine
DX: Z20.822 Contact with and (suspected) exposure to COVID-19 (principal); R05.9 Cough, unspecified; R53.83 Other fatigue
CPT/HCPCS: 0241U

== ENCOUNTER → 2024-03-29 14:58 | Outpatient (RCR) | payer MEDICARE, SELFPAY ==
[2020-09-30 10:00] VITALS: BP 141/62; PULSE 86; RESP 12; TEMP 36.4; O2SAT 94; BMI 32.8
--- NOTE | 2020-09-30 10:39 | PM.HEMONCPN ---
Medical Summary - Medical Summary Date of Service: 09/30/20 Medical Summary: Diagnosis: Iron deficiency anemia July 2019 Presented with weakness, diagnosed with severe anemia in July 2019 requiring blood transfusion. Hemoglobin of 7 gram/dL, 2 units PRBC on 07/25/2019. Underwent endoscopy and colonoscopy in September 2019, no overt bleeding found. Suffered an MD, admitted at [facility] for a week in September after endoscopy. Was on anticoagulation with plavix/baby aspirin and Eliquis. Eliquis stopped because of GI bleeding. Plavix also discontinued in 2019. Interval History Interval history: Patient is here in follow-up. He is doing quite well, he is on Plavix now and reports no hematochezia or melena. He denies exertional chest pain, orthopnea, PND or leg swelling. He has chronic shortness of breath. 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 He is being scheduled to undergo Watchman procedure as well as stent placement at [facility]. Review of Systems - Constitutional Reports no additional constitutional complaints - Cardiovascular Reports no additional cardiovascular complaints - Respiratory Reports no additional respiratory complaints - Gastrointestinal Reports no additional gastrointestinal complaints [facility] Medical History: Medical History (Last Updated 09/30/20 @ 08:51 by Swapna Morales) A-fib CAD (coronary artery disease) GERD (gastroesophageal reflux disease) History of kidney stones HTN (hypertension) Hyperlipidemia Prostate cancer Sleep apnea Tubular adenoma Family History: Family History (Last Updated 09/30/20 @ 08:51 by Swapna Morales) Mother Colon cancer Sister Colon cancer Surgical History: Surgical History (Last Updated 09/30/20 @ 08:51 by Swapna Morales) H/O cervical spine surgery History of hydrocelectomy Hx of cataract surgery Hx of cholecystectomy Hx of knee surgery Hx of tonsillectomy Hx of vasectomy Home Medications and Allergies Home Medications Medication Instructions Recorded Confirmed Type amiodarone 100 mg PO DAILY 09/30/20 09/30/20 History aspirin [Aspir-81] 81 mg PO DAILY 09/30/20 09/30/20 History atorvastatin 80 mg PO BEDTIME 09/30/20 09/30/20 History clopidogrel 75 mg PO DAILY 09/30/20 09/30/20 History furosemide 20 mg PO DAILY 09/30/20 09/30/20 History gabapentin 900 mg PO BEDTIME 09/30/20 09/30/20 History metoprolol tartrate 50 mg PO BID 09/30/20 09/30/20 History pantoprazole 20 mg PO DAILY 09/30/20 09/30/20 History spironolactone 25 mg PO DAILY 09/30/20 09/30/20 History Allergies Allergy/AdvReac Type Severity Reaction Status Date / Time No Known Allergies Allergy Mild N/A Unverified 04/18/20 14:40 Exam Vital signs: Vital Signs Temp 97.6 F 09/30/20 10:00 Pulse 86 09/30/20 10:00 Resp 12 09/30/20 10:00 BP 141/62 H 09/30/20 10:00 Pulse Ox 94 09/30/20 10:00 Intake & Output 09/29/20 09/30/20 09/30/20 18:59 06:59 18:59 Other: Weight 89.4 kg [place] Weight in Grams 38142 Weight 89.4 kg Body Mass Index 32.8 Progress Note: A/P (1) Anemia Status: Chronic Assessment and plan: 1. This is a pleasant 79-year-old male with iron deficiency anemia secondary to GI blood losses. He was on oral anticoagulants, Eliquis and plavix which was contributing to his occult GI bleeding. He received iron dextran on 10/18/2019. Anemia has resolved. He feels well. He is now off Eliquis. Plavix was resumed in August 2020 because of blockages in his grafts. He is going for stent placement. He will also undergo Watchman procedure, he is on baby aspirin as well. CBC performed at his bottler helper's office revealed a hemoglobin of 13 gram/dL with normal MCV and RDW. No signs of bleeding. Follow-up in 6 months. - Time Spent With Patient Total time spent is greater than 50% in coordination of care (as documented) at patient's floor/unit and/or counseling patient: 15 - 24 minutes
--- NOTE | 2020-09-30 13:49 | MHC.HEMONCMA ---
Patient came in for a follow up today, states that he is doing well. Clinical summary reviewed and updated. He had labs drawn and will return in 6 months.
== END | disposition home or self-care (01) ==
LOC: HO.ONC 09-30 09:22
PROVIDERS: PCP Internal Medicine; Visit Provider Internal Medicine
DX: Z86.2 Personal history of diseases of the blood and blood-forming organs and certain disorders involving the immune mechanism (principal); Z79.02 Long term (current) use of antithrombotics/antiplatelets; Z79.82 Long term (current) use of aspirin
CPT/HCPCS: 99213

== ENCOUNTER 2024-06-08 10:38 | Outpatient (REF) | payer MEDICARE, SELFPAY ==
[2024-06-08 13:29] LABS: MANUAL DIFF FLAG NO
[2024-06-08 13:37] LABS: Basophils Percent Auto 0.5 % (0-2); Eosinophils Absolute Auto 0.2 X10*3/uL (0.0-0.4); Hematocrit 30.4 % (42.0-52.0); Hemoglobin 9.1 g/dl (14.0-18.0); Imm Gran Abs Auto 0.03 X10*3/uL (0.00-0.03); Imm Gran Pct Auto 0.4 % (0.0-0.4); Lymphocytes Percent Auto 12.2 % (20-40); Mean Corpuscular HGB Conc 29.9 g/dl (31.0-36.0); Mean Corpuscular Hemoglobin 21.5 pg (27.0-33.0); Mean Corpuscular Volume 71.7 fL (80.0-98.0); Mean Platelet Volume 10.6 fL (9.4-12.4); Monocytes Absolute Auto 0.8 X10*3/uL (0.1-1.2); Monocytes Percent Auto 10.6 % (2-11); Neutrophils Absolute Auto 5.9 x10*3/uL (2.0-8.3); Neutrophils Percent Auto 74.3 % (45-73); Platelet Count 279 X10*3/uL (160-400); Red Blood Count 4.24 X10*6/uL (4.60-5.80); Red Cell Distribution Width 20.3 % (11.0-16.0); White Blood Count 7.9 X10*3/uL (4.8-10.8)
[2024-06-08 14:08] LABS: Anion Gap 14 (12-20); Blood Urea Nitrogen 19 mg/dL (9-16); Calcium 9.2 mg/dL (8.4-10.2); Carbon Dioxide 27 mmol/L (22-29); Chloride 95 mmol/L (96-108); Estimated Glomerular Filt Rate > 60; Glucose Random 119 mg/dL (60-115); Iron 16 mcg/dL (45-160); Percent Iron Saturation 6 % (15-50); Potassium 3.7 mmol/L (3.3-5.1); Sodium 132 mmol/L (135-145); Total Iron Binding Capacity 278 mcg/dL (228-428); Unsaturated Iron Binding 262 ug/dL
[2024-06-08 14:15] LABS: Vitamin B12 329 pg/mL (200-900)
== END 2024-06-08 10:39 | disposition home or self-care (01) ==
LOC: HO.HMGCLDS 10:38
PROVIDERS: PCP Internal Medicine; Visit Provider Internal Medicine
DX: D64.9 Anemia, unspecified (principal); I25.10 Atherosclerotic heart disease of native coronary artery without angina pectoris
CPT/HCPCS: 36415; 80048; 82607; 83540; 85025

== ENCOUNTER 2024-10-10 06:08 | Outpatient (REF) | payer MEDICARE, SELFPAY ==
[2024-10-10 10:25] LABS: MANUAL DIFF FLAG NO
[2024-10-10 10:32] LABS: Basophils Absolute Auto 0.1 X10*3/uL (0.0-0.2); Basophils Percent Auto 0.7 % (0-2); Eosinophils Absolute Auto 0.3 X10*3/uL (0.0-0.4); Eosinophils Percent Auto 3.3 % (0-4); Hemoglobin 10.9 g/dl (14.0-18.0); Imm Gran Abs Auto 0.03 X10*3/uL (0.00-0.03); Imm Gran Pct Auto 0.4 % (0.0-0.4); Lymphocytes Absolute Auto 1.2 X10*3/uL (1.2-4.9); Lymphocytes Percent Auto 13.6 % (20-40); Mean Corpuscular HGB Conc 31.1 g/dl (31.0-36.0); Mean Corpuscular Hemoglobin 26.1 pg (27.0-33.0); Mean Corpuscular Volume 83.9 fL (80.0-98.0); Mean Platelet Volume 10.3 fL (9.4-12.4); Monocytes Percent Auto 11.3 % (2-11); Neutrophils Percent Auto 70.7 % (45-73); Platelet Count 253 X10*3/uL (160-400); Red Blood Count 4.17 X10*6/uL (4.60-5.80); Red Cell Distribution Width 21.6 % (11.0-16.0); White Blood Count 8.5 X10*3/uL (4.8-10.8)
[2024-10-10 10:48] LABS: Anion Gap 13 (12-20); Blood Urea Nitrogen 13 mg/dL (9-16); Calcium 9.4 mg/dL (8.4-10.2); Carbon Dioxide 29 mmol/L (22-29); Chloride 95 mmol/L (96-108); Estimated Glomerular Filt Rate > 60; Glucose Random 103 mg/dL (60-115); Potassium 4.5 mmol/L (3.3-5.1); Sodium 132 mmol/L (135-145)
== END 2024-10-10 06:09 | disposition home or self-care (01) ==
LOC: HO.HMGCLDS 06:08
PROVIDERS: PCP Internal Medicine; Visit Provider Internal Medicine
DX: D64.9 Anemia, unspecified (principal)
CPT/HCPCS: 36415; 80048; 85025

== ENCOUNTER 2024-10-27 09:33 | Outpatient (AMB) | payer MEDICARE, SELFPAY ==
--- NOTE | 2024-10-27 09:34 | A.OFFPC_ITS ---
Vital Signs 10/27/24 09:40 Height 5 ft 4 in Weight 135 lb BMI 23.2 BP 120/68 Respiration 16 Pulse 90 Pulse Source Pulse Oximeter Temp 97.6 F Temp Source Temporal Artery Scan Pulse Oximetry (%) 97 Oxygen Delivery Method Room Air Intake Visit Reasons: Routine [employer] Required: No Accompanied by: Spouse Allergies niacin Adverse Reaction (Mild, Verified 10/27/24 09:35) skin flushing tamsulosin [From Flomax] Adverse Reaction (Mild, Verified 10/27/24 09:35) sweating Medication List - Last Reconciled 10/27/24 by Netta Velazquez MD aspirin 81 mg PO DAILY furosemide 20 mg PO DAILY isosorbide mononitrate ER 30 mg PO DAILY pantoprazole 40 mg PO DAILY@0630 temazepam 15 mg PO BEDTIME PRN Tobacco use date assessed: 10/27/24 Fall risk assessment: No Falls in past year Last assessed Fall Risk: 10/27/24 Dental Screening Dental Screen Date: 10/27/24 Did you have a dental visit in the last 12 months?: No Did you have a dental problem in the last 6 months where you did not have access to dental care?: No HPI HPI Comments History of Present Illness Details The patient is an 84 year old male with past medical history of CAD, afib, insomnia, esophageal ca h/o stricture, GERD, lumbar stenosis, BPH, presenting for follow up. Last seen by pcp in July CV: CAD, htn. On lasix, imdur, stopped metoprolol. 120/62. Anemia on eliquis DC'd. Dr Pineda, oncology at [facility]. Has needed iron infusions in the past. Scheduled for an echocardiogram. Dr [facility] . GI: hospitalized in Jul for dilatation. Follows with GI. On protonix, pepcid, carafate. Insomnia stable on temazepam. ROS CONSTITUTIONAL: Denies weight loss, fever and chills. HEENT: Denies changes in vision and hearing. RESPIRATORY: Denies SOB and cough. CV: Denies palpitations and CP GI: Denies abdominal pain, nausea, vomiting and diarrhea. : Denies dysuria and urinary frequency. MSK: Denies new myalgia and joint pain. SKIN: Denies rash and pruritus. NEUROLOGICAL: Denies headache PSYCHIATRIC: Denies recent changes in mood. PHYSICAL EXAM: GENERAL: Alert and oriented x 3. NAD EYES: EOMI. Anicteric. HENT: Moist mucous membranes. No scleral icterus. No cervical lymphadenopathy. LUNGS: Clear to auscultation bilaterally. CARDIOVASCULAR: Regular rate and rhythm. No murmur. No JVD. ABDOMEN: Soft, non-tender +bs EXTREMITIES: No edema. Non-tender. SKIN: No rashes or lesions. Warm. NEUROLOGIC: No focal neurological deficits. CN II-XII grossly intact PSYCHIATRIC: Cooperative. Appropriate mood and affect [facility] Medical History Esophageal carcinoma History of kidney stones Sleep apnea A-fib HTN (hypertension) GERD (gastroesophageal reflux disease) Tubular adenoma Hyperlipidemia Prostate cancer CAD (coronary artery disease) Surgical History Hx of cataract surgery Hx of vasectomy Hx of tonsillectomy Hx of cholecystectomy History of hydrocelectomy Hx of knee surgery H/O cervical spine surgery Family History Mother Colon cancer Sister Colon cancer Social History Housing: Condominium Alcohol intake: former Patient Tobacco Use Status: Former Tobacco user service: No Current occupational status: retired Cognitive needs: Yes (cane, walker) Hearing needs: Yes (b/l hearing aids) Vision needs: Yes (rx glasses) Questionnaire PHQ-9 Over the last 2 weeks, how often have you been bothered by any of the following problems? 1. Little interest or pleasure in doing things: not at all 2. Feeling down, depressed, or hopeless: not at all 3. Trouble falling or staying asleep, or sleeping too much: not at all 4. Feeling tired or having little energy: not at all 5. Poor appetite or overeating: not at all 6. Feeling bad about yourself - or that you are a failure or have let yourself or your family down: not at all 7. Trouble concentrating on things, such as reading the newspaper or watching television: not at all 8. Moving or speaking so slowly that other people could have noticed. Or the opposite - being so fidgety or restless that you have been moving around a lot more than usual: not at all 9. Thoughts that you would be better off or of hurting yourself in some way: not at all Total score: 0 Depression Screening Interpretation: Negative Depression Screening Done: Yes 39273 - PHQ-9 Billing: Yes Source: Developed by Drs. Anshul Jiménez, Rachel Azul, Garrett Skaggs and colleagues, with an educational brandi from [employer]. Thrive Questionnaire Date Thrive assessed: 10/27/24 I am a: Patient What is your living situation today?: I have a steady place to live Within the past 12 months, did the food you bought not last and you didn't have the money to get more?: Never true Within the past 12 months, did you worry whether your food would run out before you got money to buy more?: Never true Do you have trouble paying for medicines?: No Do you have trouble getting transportation to medical appointments?: No Do you have trouble paying your heating and electricity bill?: No Do you have trouble taking care of your child, family member or friend?: No Do you have trouble with day-to-day activities such as bathing, preparing meals, shopping, managing finances, etc.?: No Are you currently unemployed and looking for a job?: No Are you interested in more education?: No Please select the resources that you would like help with: None THRIVE Score: 0 AUDIT C Alcohol Use Questionnaire (AUDIT-C) 1. How often do you have a drink containing alcohol?: Never 3. How often do you have six or more drinks on one occasion?: Never Total Score: 0 WEI-7 AMB Questionnaire WEI-7 Date WEI - 7 assessed: 10/27/24 Feeling nervous, anxious, or on edge: 0 = Not at all Not being able to stop or control worryin = Not at all Worrying too much about different things: 0 = Not at all Trouble relaxin = Not at all Being so restless that it is hard to sit still: 0 = Not at all Becoming easily annoyed or irritable: 0 = Not at all Feeling afraid as if something awful might happen: 0 = Not at all Total WEI-7 score (0-4 normal; 5-9 mild; 10-14 moderate; 15-21 severe): 0 Source: Developed by Drs. Anshul Jiménez, Rachel Azul, Garrett Skaggs and colleagues, with an educational brandi from [employer]. Physical exam (Primary Care) Vital Signs: Last Vital Signs Temp 97.6 F 10/27/24 09:40 Pulse 90 10/27/24 09:40 Resp 16 10/27/24 09:40 BP 120/68 10/27/24 09:40 Pulse Ox 97 10/27/24 09:40 Oxygen Delivery Method Room Air 10/27/24 09:40 BMI result Body Mass Index 23.2 Tobacco/Smoking Status: Tobacco use Status Tobacco use date assessed 10/27/24 10/27/24 09:40 Patient Tobacco Use Status Former Tobacco user 10/27/24 09:36 PHQ-9: PHQ-9 Score PHQ-9: Total score 0 10/27/24 09:50 Depression Screening Interpretation: Negative Thrive Assessment: Date of Thrive Assessment Date Thrive assessed 10/27/24 10/27/24 09:40 Coding Level of Care Code New Pt Level 4 (60606) Complex EM visit Add On G2211 Diagnoses Coronary artery disease involving coronary bypass graft of yocha dehe heart, unspecified whether angina present I25.810 Coronary Disease-Associated Artery/Lesion type: bypass graft Jamul vs. transplanted heart: yocha dehe heart Associated angina: unspecified whether angina present Esophageal carcinoma C15.9 Elevated glucose R73.09 History of prostate cancer Z85.46 Additional Codes PHQ-9 - 91036 - PHQ-9 Billing: Yes ([id number]) Assessment & Plan Assessment & Plan (1) CAD (coronary artery disease): Comment: 4 vessel CABG surgery 1995 Code(s): I25.10 - Atherosclerotic heart disease of yocha dehe coronary artery without angina pectoris Category: Medical Qualifiers: Coronary Disease-Associated Artery/Lesion type: bypass graft Jamul vs. transplanted heart: yocha dehe heart Associated angina: unspecified whether angina present Qualified Code(s): I25.810 - Atherosclerosis of coronary artery bypass graft(s) without angina pectoris (2) Esophageal carcinoma: Comment: squamous, distal esophogus, last chemo jun 2021 Code(s): C15.9 - Malignant neoplasm of esophagus, unspecified Category: Medical (3) Elevated glucose: Code(s): R73.09 - Other abnormal glucose Category: Medical (4) History of prostate cancer: Code(s): Z85.46 - Personal history of malignant neoplasm of prostate Category: Medical Plan 84 to establish care past medical, surgical, social reviewed Interval history, chronic medical conditions, medications reconciled Labs ordered. BP controlled Orders: Orders IRON PROFILE 3 Months C15.9 - Malignant neoplasm of esophagus, unspecified, D64.9 - Anemia, unspecified, R73.09 - Other abnormal glucose, Z85.46 - Personal history of malignant neoplasm of prostate Hemoglobin A1c 3 Months C15.9 - Malignant neoplasm of esophagus, unspecified, D64.9 - Anemia, unspecified, R73.09 - Other abnormal glucose, Z85.46 - Personal history of malignant neoplasm of prostate Comprehensive Met. Panel 3 Months C15.9 - Malignant neoplasm of esophagus, unspecified, D64.9 - Anemia, unspecified, R73.09 - Other abnormal glucose, Z85.46 - Personal history of malignant neoplasm of prostate Complete Blood Count Auto Diff 3 Months C15.9 - Malignant neoplasm of esophagus, unspecified, D64.9 - Anemia, unspecified, R73.09 - Other abnormal glucose, Z85.46 - Personal history of malignant neoplasm of prostate Vitamin B12 and Folate 3 Months C15.9 - Malignant neoplasm of esophagus, uns pecified, D64.9 - Anemia, unspecified, R73.09 - Other abnormal glucose, Z85.46 - Personal history of malignant neoplasm of prostate Medications: New temazepam 15 mg PO BEDTIME PRN 90 caps 3RF sleep G47.00 - Insomnia, unspecified aspirin 81 mg PO DAILY 90 tabs 3RF furosemide 20 mg PO DAILY 90 tabs 3RF pantoprazole 40 mg PO DAILY@0630 90 tabs 3RF isosorbide mononitrate ER 30 mg PO DAILY 90 tabs 3RF
[2024-10-27 09:40] VITALS: BP 120/68; PULSE 90; RESP 16; TEMP 36.4; O2SAT 97; BMI 23.2
== END 2024-10-27 10:28 | disposition home or self-care (01) ==
LOC: HO.HMCHD 09:33
PROVIDERS: PCP Internal Medicine; Visit Provider Internal Medicine
DX: I25.810 Atherosclerosis of coronary artery bypass graft(s) without angina pectoris (principal); C15.9 Malignant neoplasm of esophagus, unspecified; R73.09 Other abnormal glucose; Z85.46 Personal history of malignant neoplasm of prostate

== ENCOUNTER → 2024-10-27 09:33 | Outpatient (BNVA) | payer MEDICARE, SELFPAY | PROVIDERS: PCP Internal Medicine; Visit Provider Internal Medicine | DX: I25.810 Atherosclerosis of coronary artery bypass graft(s) without angina pectoris (principal); C15.9 Malignant neoplasm of esophagus, unspecified; R73.09 Other abnormal glucose; I10 Essential (primary) hypertension; G47.00 Insomnia, unspecified; Z85.46 Personal history of malignant neoplasm of prostate; Z92.21 Personal history of antineoplastic chemotherapy | CPT/HCPCS: 96127; 99202 ==

== ENCOUNTER 2025-02-22 16:24 | Emergency (ER) | payer MEDICARE, SELFPAY ==
--- OUTSIDE RECORDS SUMMARY | 2024-08-01 06:43 | XMS_ITS | Encounter Summary ---
Author Name [facility] [place] [facility] [place] Address [address] [place] [address] Care Team Providers Care Special Education Educational Assistant Name Role Phone YAHIR JARRELL Primary Care Provider UnavailMIKE Sosa Unavailable Unavailable DONALD SARMIENTO Unavailable Unavailable PAULINA HA Unavailable Unavailable CHAPUT, OMAYRA Unavailable Unavailable MATTEJAKOB Unavailable Unavailable WALI KNIGHT Unavailable Unavailable LIONEL LOZANO Unavailable UnavailTEODORO King Unavailable Unavailable MISBAH MENDEZ Unavailable Unavailable Insurance Providers: All historical and current Section Date Range: From patient's date of to the date document was created. This section includes the names of all active insurance providers for the patient. Insurance Provider Type of Coverage Plan Name Start of Policy Coverage End of Policy Coverage Group Number Member ID Insurance Provider's Telephone Number Policy Wood's Name Patient's Relationship to Policy Wood [place] MEDICARE SUPPLEMEN DOROTHY P[employer] O [employer] MEDEX C Jun 02, 2003 [id number] QUINTON SUAREZ PATIENT ANTHE[place] OF [place] (BLUECARD) MEDICARE SUPPLEMEN DOROTHY MEDEX BRONZ E Jun 02, 2003 [id number] ERICK, GUY PATIENT ANTHEM [place] OF [place] (BLUECARD) MEDICARE SUPPLEMEN DOROTHY MEDEX BRONZ E Jun 02, 2003 [id number] [phone] QUINTON SUAREZ PATIENT [place] SUPPLEMEN D[place]OTHY MEDEX BRONZ E Jun 02, 2003 [id number] [phone] QUINTON SUAREZ PATIENT [place] MED[place] SUPPLEMEN D[place]OT[place] MEDEX BRONZ E Jun 02, 2003 [id number] QUINTON SUAREZ PATIENT MEDICARE (WNR) MEDICARE (M) PART A Jun 02, 2003 PART A [id number] QUINTON SUAREZ PATIENT MEDICARE (WNR) MEDICARE (M) PART B Jun 02, 2003 PART B [id number] [phone] QUINTON SUAREZ PATIENT MEDICARE (WNR) MEDICARE (M) PART A Jun 02, 2003 PART A [id number] QUINTON SUAREZ PATIENT MEDICARE (WNR) MEDICARE (M) PART B Jun 02, 2003 PART B [id number] QUINTON SUAREZ PATIENT Selected Encounter This section includes the information on record at [place] for the Encounter. Date/Time Encounter Type Encounter Description Reason Pro vider Source Aug 01, 2024 10:43 AM Outpatient Encounter COMMUNITY CARE CONSULT IHE Encounter Template Text not used by [place] Plan of Treatment: Future Appointments (+ 6 months) and Future Tests (+/- 45 days) The Plan of Treatment section includes future care activities for the patient from all [place] treatmentfacilities. This section includes future appointments and future orders which are active, pending or scheduled. Future Appointments This section includes appointments that were scheduled to occur 6 months from the date of the Encounter, up to a maximum of 20 appointments. The data comes from all [place] treatment facilities. Appointment Date/Time Appointment Type Appointme nt Facility Name Oct 12, 2024 08:00 AM [place] [facility] [place] [facility] Oct 12, 2024 09:30 AM [place] [facility] [place] [facility] Social History: Smoking Status (Most current) and Tobacco Use (All prior to encounter date) This section includes the most current, and the historical, smoking and tobacco- related health factors from the [place] facility where the Encounter took place. Current Smoking Status This section includes the most current smoking, or tobacco-related health factor, from the [place] facility where the Encounter took place. Date/Time Current Smoking Status Comment [facility] it Oct 27, 2023 09:00 AM VA-TOBACCO QUIT 15 YRS OR MORE [place] [facility] [place] [facility] Tobacco Use History This section includes a history of the smoking, or tobacco-related health factors, that were collected on or before the date of the Encounter. The data comes from the [place] facility where the Encounter took place. Date/Time Smoking Status/Tobac co Use Comment Facility Oct 27, 2023 09:00 AM VA-TOBACCO QUIT 15 YRS OR MORE [facility] [place] [facility] Sep 23, 2022 09:00 AM VA-TOBACCO FORMER USER [facility] [place] [facility] Sep 23, 2022 09:00 AM VA-TOBACCO QUIT 15 YRS OR MORE [facility] [place] [facility] Sep 16, 2021 08:00 AM VA-TOBACCO FORMER USER [facility] [place] [facility] Sep 16, 2021 08:00 AM VA-TOBACCO QUIT 15 YRS OR MORE [facility] [place] [facility] Sep 18, 2020 09:30 AM VA-TOBACCO FORMER USER [facility] [place] [facility] Sep 18, 2020 09:30 AM VA-TOBACCO QUIT 15 YRS OR MORE [facility] [place] [facility] Sep 14, 2019 02:58 PM VA-TOBACCO FORMER USER [facility] [place] [facility] Sep 14, 2019 02:58 PM VA-TOBACCO QUIT 15 YRS OR MORE [facility] [place] [facility] Mar 07, 2018 09:28 AM VA-TOBACCO NEVER USED [facility] [place] [facility] Sep 06, 2017 08:47 AM LIFETIME NON-TOBACCO USER [facility] [place] [facility] Sep 03, 2016 08:47 AM QUIT TOBACCO USE > 7 YEARS AGO [facility] [place] [facility] Sep 02, 2015 08:12 AM LIFETIME NON-TOBACCO USER [facility] [place] [facility] Mar 26, 2009 02:00 PM QUIT TOBACCO USE > 7 YEARS AGO Quit March 1966 [facility] Advance Directives: All historical and current Section Date Range: From patient's date of to the date document was created. This section includes ALL of a patient's completed or amended [place] Advance and Rescinded Directives. The entries below indicate that a directive exists for the patient, but an actual copy is not included with this document. The data comes from all [place] facilities. Date Advance Directives Provider Source Jul 30, 2013 ADVANCE DIRECTIVE JOHNNY PARSONS [facility] Encounter Notes: All associated encounter notes This section contains the clinical notes associated to the Encounter. Date/Time Encounter Note(s) Provider Source Aug 01, 2024 10:43 AM NONVA NOTE: LOCAL TITLE: COMMUNITY CARE-CARE COORDINATION PLAN NOTE STANDARD TITLE: NONVA NOTE DATE OF NOTE: AUG 01, 2024@10:43 ENTRY DATE: AUG 01, 2024@10:44:09 AUTHOR: RODRI AGUDELO COSIGNER: URGENCY: STATUS: COMPLETED Community Care Consult: Thoracic Surgery Consult No: [id number] [facility] Referral #: Provider Name: [facility] Cain was seen by Margareth aHrdwick MD at [facility] on 07/20/2024 for office visit. History of Present Illness This 84-year-old male with a history of esophageal cancer status post chemoradiotherapy and severe esophageal stricture with underlying significant congestive heart failure called with failure to thrive. He has been having increasing difficulties with volume regurgitation. He states that this is happening every single day and with most attempts to take oral intake. It does come and go, suggesting intermittent obstruction of the stent. He has been losing weight. He has had no fevers or chills. He does feel fatigued and his appetite is poor. He has no sensation of food sticking or dysphagia. He has a cough and sputum production which is clear. He has no green or yellow sputum. He also is complaining of some constipation. He has a history of gallstones. He completed 12 part system review form in my clinic. The pertinent positives and negatives are detailed above. He has increased frequency of urination, nocturnal urination, history of kidney stones, difficulty starting his urinary stream with prostate problems. Remainder is unremarkable. Comment: This 84-year-old man returns for complaints of severe reflux and inability to tolerate p.o. intake. It has been slowly worsening over the past 2 months. It is now to the point where he can go a day or 2 without being able to tolerate any oral intake. I recommended hospital admission, but he feels like he can maintain his hydration at home and does not want to sit in the hospital waiting for procedure to be done. I have room on my OR schedule on July 24. I asked him to call if he has decreasing urine output, concentrated urine, or has any dizziness to suggest he is dehydrated. I have asked my computer network specialist to add him to my OR for Wednesday and will plan to admit him to the hospital following the procedure. It may be that the stent is migrated and is now up against the back wall of the stomach, preventing the stent from emptying. If that is the case, a simple stent revision may be all that is necessary. If that is not the situation, a percutaneous endoscopic gastrostomy tube with a jejunal extension may be the best option for the patient. Below is operative note from 07/24 procedure. Butler was d/c'd home on 07/25. INTRAOPERATIVE FINDINGS: 1. A significant stricture was encountered just proximal to the distal esophageal stent that did not allow passage of the endoscope. 2. Following dilation to 39 Azeri, I was able to pass the scope through the stenosis and into the proximal stent. The stenosis was immediately proximal to the superior aspect of the endoluminal stent. I passed the scope to the end of the stent and found that it was up against the wall of the stomach. 3. Using intraoperative fluoroscopy to assess the movement of the stent, the proximal wire was grasped and pulled into the esophageal overtube. The stent was then withdrawn until the flange was proximal to the area of stenosis. The scope was then passed distally to the distal extent of the stent and it was advanced slightly so that the flange was just beyond the top of the gastric folds/esophageal stenosis. Mantis clips x 3 were applied to help hold the stent in position. 4. Using 100 mL of Hypaque contrast, and esophagram was performed. The contrast passed easily into the stent and into the stomach. Both office visit note and operative note have been sent in full to [place] [facility] for scanning into [employer]. This note for PACT review. /es/ RODRI AGUDELO [facility] Care RN Signed: 08/01/2024 10:52 Receipt Acknowledged By: 08/01/2024 13:17 /es/ Guerline Dick RN, BSN Primary Care 08/01/2024 10:53 /es/ Johnny Parsons MD Staff Physician RODRI AGUDELO [facility]
--- OUTSIDE RECORDS SUMMARY | 2025-02-17 23:59 | XMS_ITS | Continuity of Care Document ---
Author Organization [facility] Address [address] [place] [address] Kate sky, [address] [place] [address]- Care Team Providers Care Trim Operator Name Role Phone Caroline CANTU, Netta Oquendo Primary Care Physician Encounter [facility] Date(s): 01/18/25 - 02/17/25 [facility] [address] [place] [address] Drive [address] [place], [place] [address] Attending Physician: AdmClint rosas Admitting Physician: AdmtrClint Referring Physician: Admtr, [id number] Encounter Type: Triage Allergies, Adverse Reactions, Alerts Substance Criticality Severity Reaction Reaction Severity Status niacin get real flush Act catherine Flomax Extreme diaphoresis Active Immunizations Given and Recorded Vaccine Date Status Refusal Reason [id number] bivalent booster vax 05/31/22 Recorded SARS-CoV-2 (COVID-19) mRNA-1273 vaccine 11/18/21 R ecorded SARS-CoV-2 (COVID-19) mRNA-1273 vaccine 05/27/21 R ecorded SARS-CoV-2 (COVID-19) mRNA-1273 vaccine 09/27/20 R ecorded SARS-CoV-2 (COVID-19) mRNA-1273 vaccine 08/23/20 R ecorded Medications aspirin 81 mg oral delayed release tablet 81 mg, 1, tablet, By Mouth, Daily in AM, Refills 0, Maintenance, 06/03/20 10:21:00 AM EST Start Date: 06/03/20 Status: Ordered Repeat number: 1 carboxymethylcellulose 1 drops, Eyes, Both, 2 times a day, PRN as needed for dry eyes, 0.5%, 0 Refills, Maintenance, 03/31/23 10:51:00 AM EDT Start Date: 03/31/23 Status: Ordered Repeat number: 1 famotidine 20 mg oral tablet 1, tablet, By Mouth, Daily at bedtime, # 90 Unknown, Refills 3, Maintenance, 07/27/24 4:27:00 PM EST, Route to Pharmacy Electronically, [facility], 163, cm, 07/25/24 10:12:00 EST, Height, 61.5, kg, 07/24/24 17:27:00 EST, Dry Weight Start Date: 07/27/24 Status: Ordered Quantity: 90.0 Unit: Unknown Repeat number: 1 Furosemide = 40 mg, By Mouth, Daily in AM, 0 Refills, Maintenance, 07/21/24 8:34:00 AM EST Start Date: 07/21/24 Status: Ordered Repeat number: 1 isosorbide mononitrate 30 mg oral tablet, extended release 60 mg, 2, tablet, By Mouth, Daily in AM, Maintenance, 01/25/25 8:05:00 AM EDT Start Date: 01/25/25 Status: Ordered Repeat number: 1 isosorbide mononitrate 30 mg oral tablet, extended release 1 tablet = 30 mg, By Mouth, Daily at bedtime, 0 Refills, Maintenance, 08/07/24 4:08:00 PM EST, Partial fill upon patient request if the prescription is for a schedule II opioid drug. Start Date: 08/07/24 Status: Ordered Repeat number: 1 pantoprazole 40 mg oral delayed release tablet 1 tablet = 40 mg, By Mouth, 2 times a day, # 60 tablet, 1 Refills, Maintenance, 07/25/24 11:24:00 AM EST, EC Tablet, 163, cm, 07/25/24 10:12:00 EST, Height, 61.5, kg, 07/24/24 17:27:00 EST, Dry Weight Start Date: 07/25/24 Status: Ordered Quantity: 60.0 Unit: tablet Repeat number: 2 Problem List Condition Confirmation Course Effective Dates Status H ealth Status Informant Aortic valve regurgitation Confirmed 09/07/17 Active Biventricular CHF (congestive heart failure) Confirmed Active Coronary artery disease Confirmed Active Dyspnea on exertion Confirmed 11/16/18 Active Esophageal dysphagia Confirmed 03/2021 Active Chronic GERD Confirmed Active History of transfusion of packed red blood cells Confirmed Active Hx of CABG Confirmed Active History of radiation therapy Confirmed Active Hyperlipidemia Confirmed Active Hypertension Confirmed Active Iron deficiency anemia due to chronic blood loss Confirmed 04/2021 Active Non-ST elevation AL (NSTEMI) Confirmed Active Obstructive sleep apnea Confirmed Active Paroxysmal atrial fibrillation Confirmed Active History of antineoplastic therapy Confirmed Active 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 Active Radiation-induced esophageal stricture Confirmed Active Unintended weight loss Confirmed 08/2021 Active Social History Social History Type Response Smoking Status Former smoker, quit more than 30 days ago entered on: 01/18/25 Sex Sex Representation Male (finding) Patient Care team information Care Team Personnel Name: Kassidy Darling Position: [facility] Onco RN Member Role: Primary Care Nurse Name: Yaa Melissa NP Position: [facility] Outreach Member Role: Lifetime Consulting Physician Name: Anita Sweet RN Position: S RN Member Role: Primary Care Nurse Name: Sophie Cuba RN Position: S RN Member Role: Primary Care Nurse Name: Radha Cazares RN Position: S RN Member Role: Primary Care Nurse Name: Candace Gutierres RN Position: [facility] RN Member Role: Primary Care Nurse Name: Ange Gómez RN Position: [facility] Onco RN Member Role: Primary Care Nurse Name: Liz Juárez RN Position: [facility] SN RN Member Role: Primary Care Nurse Name: Belen Liang RN Position: [facility] RN Member Role: Primary Care Nurse Name: Liz Alexander RN Position: S RN Member Role: Primary Care Nurse Name: Natali Rogers RN Position: [facility] Onco RN Member Role: Primary Care Nurse Name: Swapna Lyn RN Position: [facility] Onco RN Member Role: Primary Care Nurse Name: Charlotte Coe RN Position: [facility] Onco RN Member Role: Primary Care Nurse Name: Donna Meredith RN Position: S RN Member Role: Primary Care Nurse Name: Sid Erickson RN Position: S RN Member Role: Primary Care Nurse Name: Netta Velazquez MD Position: Reference Physician Member Role: PCP Address: [address] [place] [address] Telecom: Name: Maddison Lorenzo RN Position: [facility] RN Member Role: Primary Care Nurse Name: Maye Arroyo RN Position: [facility] AMB Nurse Member Role: Primary Care Nurse Name: Jose F Hightower RN Position: [facility] Onco RN Member Role: Primary Care Nurse Name: Tristan Mora MD Position: [facility] Cardiology MD Member Role: Lifetime Consulting Physician Address: [address] [place] [address] [facility] [address] Telecom: Name: John Jani RN Position: [facility] RN Member Role: Primary Care Nurse Name: Ivy Chase RN Position: [facility] RN Member Role: Primary Care Nurse Name: Bridger Bejarano RN Position: [facility] RN Member Role: Primary Care Nurse Name: Shanta Glass LPN Position: [facility] RN Member Role: Primary Care Nurse Name: Aminata Scott MD Position: [facility] Outreach Member Role: Lifetime Consulting Physician Name: Kristina Azul RN Position: [facility] Hospital Visual Basic .Net Developer Member Role: Primary Care Nurse Care Team Related Persons Name: SEBASTIAN SUAREZ Name: REBECCA SUAREZ Name: MANOLO SUAREZ Insurance Providers Guarantor name: QUINTON ERICK Health Plan Information #: 1 Payer: MEDICARE B Payer Identifier: APOLINAR Member Number: [id number] Group Number: Subscriber Identifier: [id number] Relationship to Subscriber: self Coverage Type: NA Coverage Verification Date: NA Telecom: NA Address: Health Plan Information #: 2 Payer: MEDEX SECONDARY ONLY Payer Identifier: APOLINAR Member Number: [id number] Group Number: [id number] Subscriber Identifier: [id number] Relationship to Subscriber: self Coverage Type: Medicare Other Coverage Verification Date: NA Telecom: Address:
[2025-02-22] VITALS (11 sets, daily range): BP systolic 94–123; BP diastolic 49–63; PULSE 90–107; RESP 17–22; TEMP 36.4–36.9; O2SAT 92–97; BMI 25.0
--- NOTE | ~2025-02-22 | CT_ITS ---
CLINICAL HISTORY: fall with headstrike CT cervical spine without contrast Comparison: None provided Findings: Vertebral alignment is within normal limits. Anterior cervical discectomy and fusion changes at C4-C5 with well-positioned surgical material. Multiple level degenerative disc, facet, and uncovertebral joint change. No acute fractures or dislocations. Visualized intracranial contents are unremarkable. No cervical fluid collections or masses. No consolidation or effusion at the lung apices. IMPRESSION: No acute findings. This document has been electronically signed by: Chevy Tracey MD on 02/22/2025 19:03:31
--- NOTE | ~2025-02-22 | XR_ITS ---
CLINICAL HISTORY: weakness 1 view chest x-ray Comparison: None provided Findings: There are small bilateral pleural effusions. Possible left hemidiaphragm calcifications. Mild left basilar opacities likely secondary to atelectasis. Heart size is normal. The heart is enlarged. The aorta is elongated. There has been a prior sternotomy. There is an esophageal stent. No acute fracture. There is a right-sided Port-A-Cath with its tip at the cavoatrial junction. IMPRESSION: Small bilateral pleural effusions. This document has been electronically signed by: Ruby Nguyen MD on 02/22/2025 18:22:52
--- NOTE | ~2025-02-22 | CT_ITS ---
CLINICAL HISTORY: fall with HS CT head without contrast Comparison: None provided Findings: No intra-axial mass, midline shift, hydrocephalus, or acute hemorrhage. There is moderate diffuse atrophy. There is no sinus or mastoid fluid. The orbits are within normal limits. There is no acute fracture. IMPRESSION: 1. No acute intracranial findings. This document has been electronically signed by: Chevy Tracey MD on 02/22/2025 19:02:56
--- NOTE | 2025-02-22 16:33 | PC.NURSE ---
scattered bruising to lower abd s/p recent admission.
--- NOTE | 2025-02-22 16:40 | ED.GENADULT ---
HPI - General Adult General Chief complaint: Fall Stated complaint: fell getting off toilet. +head strike Time Seen by Provider: 02/22/25 16:39 History of Present Illness ED Provider: Elisha Quiroz PA-C HPI narrative: 84-year-old male with medical history of sleep apnea, HTN, GERD, HLD, CAD, prostate cancer, esophageal carcinoma, AFib not on AC, on ASA presents to the ED by EMS after fall with head strike prior to arrival. Patient states he was attempting to urinate, when he went to sit down on the toilet and fell forward striking his head on the dryer. Patient states he woke up this morning feeling ?off, and shaky?. Patient states he has been experiencing dizziness for the past 2 years, has only seen PCP once due to his doctor retiring. Patient reports shortness of breath that is worse with exertion, but sometimes feels out of breath when talking. Patient also reports he almost fell down the stairs this morning but his son was home helping him get down the stairs preventing the fall. Denies headache, visual changes, chest pain, dizziness, nausea, vomiting MD complaint: weakness, fall with headstrike Related Data Previous Rx's ?Medication ?Instructions ?Recorded aspirin 81 mg tablet,delayed 81 mg PO DAILY #90 tabs 10/27/24 release furosemide 20 mg tablet 20 mg PO DAILY #90 tabs 10/27/24 isosorbide mononitrate 30 mg 30 mg PO DAILY #90 tabs 10/27/24 tablet,extended release 24 hr pantoprazole 40 mg tablet,delayed 40 mg PO DAILY@0630 #90 tabs 10/27/24 release temazepam 15 mg capsule 15 mg PO BEDTIME PRN sleep #90 caps 10/27/24 Allergies Allergy/AdvReac Type Severity Reaction Status Date / Time niacin AdvReac Mild skin Verified 02/22/25 16:36 flushing tamsulosin (From Flomax) AdvReac Mild sweating Verified 02/22/25 16:36 Review of Systems Review of Systems: CONST: Negative for fever, body aches and chills. HENT: Negative for neck pain/stiffness, headache, congestion, sore throat, swelling. EYES: Negative for discharge/pain or vision changes. RESP: Negative for cough/hemoptysis and shortness of breath. POS SOB CV: Negative chest pain, difficulty breathing, palpitations. ABD: Negative pain, nausea, vomiting. : Negative increase frequency, dysuria, blood in urine or stool. MUSC: Negative for muscle aches, edema. SKIN: Negative rash, lesions/sores. NEURO: Negative headache, dizziness, weakness. POS weakness Yes all other systems are reviewed and are negative [facility] Past Medical History Attestation statement: The following information was validated with the patient. Source: old records reviewed and nursing notes reviewed Medical History Esophageal carcinoma History of kidney stones Sleep apnea A-fib HTN (hypertension) GERD (gastroesophageal reflux disease) Tubular adenoma Hyperlipidemia Prostate cancer CAD (coronary artery disease) Surgical History Hx of cataract surgery Hx of vasectomy Hx of tonsillectomy Hx of cholecystectomy History of hydrocelectomy Hx of knee surgery H/O cervical spine surgery Family History Family History Mother Colon cancer Sister Colon cancer Social History Social History Housing: Condominium Alcohol intake: former Patient Tobacco Use Status: Former Tobacco user Smoked in Last 30 Days: No Use of substances other than those prescribed or required for medical reasons: No Advance Directives: Yes Advance Directives Information Provided: Yes Advance Directives on File: No service: No Current occupational status: retired Cognitive needs: Yes (cane, walker) Hearing needs: Yes (b/l hearing aids) Vision needs: Yes (rx glasses) Physical Exam ED Vital Signs: Vital Signs - 24 hr 02/22/25 16:33 02/22/25 16:36 02/22/25 18:41 Temperature 98.1 F 98.1 F Pulse Rate 96 96 98 Respiratory Rate 17 17 20 Blood Pressure 107/57 L 107/57 L 123/56 L Pulse Oximetry 94 96 94 Oxygen Delivery Method Room Air Room Air Room Air 02/22/25 18:41 02/22/25 19:24 02/22/25 20:00 Temperature 98.1 F 97.6 F 98.4 F Pulse Rate 90 95 95 Respiratory Rate 17 18 22 H Blood Pressure 123/56 L 110/50 L 109/63 Pulse Oximetry 94 94 95 Oxygen Delivery Method Room Air Room Air Room Air 02/22/25 22:00 02/22/25 22:16 02/22/25 22:19 Temperature 97.9 F Pulse Rate 93 93 96 Respiratory Rate 22 H Blood Pressure 108/51 L 108/51 L 106/49 L Pulse Oximetry 93 Oxygen Delivery Method Room Air 02/22/25 22:21 Temperature Pulse Rate 107 H Respiratory Rate Blood Pressure 94/50 L Pulse Oximetry Oxygen Delivery Method BMI result Body Mass Index 25.0 GENERAL APPEARANCE: ?AxOx4, no acute distress. HEENT: MMM. EOMI, clear conjunctiva, oropharynx clear. Hematoma over L forehead. See attached photos NECK: ?Supple without lymphadenopathy.? No stiffness or restricted ROM. HEART:? Irregular rate and rhythm, no m/r/g LUNGS:? CTAB, moving air well. No crackles or wheezes are heard. ABDOMEN: ?Soft, nontender, nondistended. BACK: No CVAT, no obvious deformity. EXTREMITIES: ?Without cyanosis, clubbing or edema. Multiple bruises over bilateral arms, skin tear of R elbow. See photos NEUROLOGICAL: ?Grossly nonfocal. Alert and oriented, moving all 4 extremities. Observed to ambulate with normal gait. Skin: ?Warm and dry without any rash. Medications Administered Discontinued Medications Generic Name Dose Route Start Last Admin Trade Name Freq PRN Reason Stop Dose Admin Bacitracin 1 appl 02/22/25 21:55 02/22/25 22:12 Bacitracin Oint 0.9 Gm Packet TOPICAL 02/22/25 21:56 1 appl ONCE ONE Administration Protocol Lactated Ringer's 1,000 mls @ 999 mls/hr 02/22/25 17:56 02/22/25 19:23 Lr IV 02/22/25 18:56 Not Given .Q1H1M ONE Medical Decision Making Medical Decision Making MDM Narrative: 84-year-old male with medical history of sleep apnea, HTN, GERD, HLD, CAD, prostate cancer, esophageal carcinoma, AFib not on AC, on ASA presents to the ED by EMS after fall with head strike prior to arrival. Patient states he was attempting to urinate, when he went to sit down on the toilet and fell forward striking his head on the dryer. Patient states he woke up this morning feeling ?off, and shaky?. Patient states he has been experiencing dizziness for the past 2 years, has only seen PCP once due to his doctor retiring. Patient reports shortness of breath that is worse with exertion, but sometimes feels out of breath when talking. Patient also reports he almost fell down the stairs this morning but his son was home helping him get down the stairs preventing the fall. Vital signs stable, BP 107/57, HR-96 beats per minute, respiratory rate-17 breaths per minute, 94% on room air. On physical exam there are no focal neurological deficits. EKG reveals atrial fibrillation, right bundle branch block, with left axis deviation. No ST elevation or depression. Initial troponin 17.9, 2nd troponin 22.6-troponins are flat without delta change patient without chest pain- less likely ACS Labs without leukocytosis, H&H stable. BNP elevated at 575, without lower extremity edema lungs clear to auscultation. UA without evidence of infection. Course 22:06- CXR reveals cardiomegaly with elongated aorta, small bilateral pleural effusions. CT head brain is negative for acute intracranial processes. CT cervical spine negative for fracture. I considered workup for potential pulmonary embolism due to AFib and patient not being on AC. I decided against this as patient is not tachycardic, hemodynamically stable, without pleurisy, with SOB at baseline that has not changed in intensity. WELLS score is negative. Patient negative for orthostatic hypotension. Patient ambulated with walker around the department with nurse, O2 sat dropped to 88% for a few moments, increased back up to 93% on room air. Patient states his O2 baseline is around 92-93%. Patient states he was not dizzy, not lightheaded, was able to comfortably ambulate with walker. Skin tear right elbow not actively bleeding, wound cleaned, bacitracin placed, with nonstick pad and dressing done by nursing. I considered IV fluids for dehydration, patient's BP stable, patient with pleural effusion did not want to fluid overload and make shortness of breath worse. At this time I believe patient experienced postural dizziness, dizziness may be exacerbated by furosemide use however patient states he has been on this medication for years and has never been symptomatic. Patient with persistent dizziness 2+ years, has not been evaluated by PCP. I encouraged the patient to follow up with his PCP for further evaluation and management of his dizziness. Differential Diagnosis Differential Diagnoses: The differential diagnosis associated with the presentation includes ACS ICH Skull fracture Electrolyte abnormality CHF exacerbation Admission/Observation Consideration of admission/observation: Escalation of care including admission/observation considered Lab Data MDM Lab Attestation statement: I reviewed the patient's lab results. 02/22/25 17:14 02/22/25 17:14 Labs: Lab Results 02/22/25 02/22/25 02/22/25 Range/Units 17:14 20:50 21:28 WBC 9.2 (4.8-10.8) X10*3/uL RBC 3.36 L (4.60-5.80) X10*6/uL Hgb 10.0 L (14.0-18.0) g/dl Hct 30.2 L (42.0-52.0) % MCV 89.9 (80.0-98.0) fL MCH 29.8 (27.0-33.0) pg MCHC 33.1 (31.0-36.0) g/dl RDW 20.0 H (11.0-16.0) % Plt Count 207 (160-400) X10*3/uL MPV 10.3 (9.4-12.4) fL Immature Gran % (Auto) 0.4 (0.0-0.4) % Neut % (Auto) 76.6 H (45-73) % Lymph % (Auto) 9.1 L (20-40) % [facility] % (Auto) 12.1 H (2-11) % Eos % (Auto) 1.4 (0-4) % Baso % (Auto) 0.4 (0-2) % Lymph # (Auto) 0.8 L (1.2-4.9) X10*3/uL [facility] # (Auto) 1.1 (0.1-1.2) X10*3/uL Eos # (Auto) 0.1 (0.0-0.4) X10*3/uL Baso # (Auto) 0.0 (0.0-0.2) X10*3/uL Abs Immat Gran (auto) 0.04 H (0.00-0.03) X10*3/uL Absolute Neuts (auto) 7.0 (2.0-8.3) x10*3/uL Absolute Nucleated RBC 0.000 (0.0-0.012) X10*3/uL Nucleated RBC % (auto) 0.0 (0.0-0.2) /100WBC Sodium 131 L (135-145) mmol/L Potassium 3.5 D (3.3-5.1) mmol/L Chloride 93 L (96-108) mmol/L Carbon Dioxide 30 H (22-29) mmol/L Anion Gap 12 (12-20) BUN 19 H (9-16) mg/dL Creatinine 0.66 (0.5-1.4) mg/dL Estim Creat Clear Calc 67.2 Estimated GFR > 60 Random Glucose 111 (60-115) mg/dL Calcium 8.4 D (8.4-10.2) mg/dL Total Bilirubin 0.8 (0.0-1.0) mg/dL AST 28 (5-37) U/L ALT 12 (0-40) U/L Alkaline Phosphatase 193 H (39-117) U/L Total Creatine Kinase 22 L (38-174) U/L Troponin I High Sens 17.9 22.6 (<3.5-35.0) ng/L B-Natriuretic Peptide 575 H (<100) pg/mL Total Protein 6.9 (6.5-8.0) g/dL Albumin 3.5 (3.5-5.0) g/dL Urine Color Yellow Urine Appearance Clear Urine pH 7.5 (5.0-9.0) Ur Specific [place] 1.020 (1.005-1.025) Urine Protein Trace (Neg-Trace) mg/dL Urine Glucose (UA) Negative (Negative) mg/dL Urine Ketones Trace (Negative) mg/dL Urine Blood Negative (Negative) Urine Nitrite Negative (Negative) Ur Leukocyte Esterase Trace H (Negative) Urine RBC 0-2 (0-2) /HPF Urine WBC 0-5 (0-5) /HPF Ur Squamous Epith Cells 0-2 (0-2) /HPF Urine Bacteria None Seen (None Seen) Hyaline Casts 0-2 (0-2) /LPF Independent Interpretation I performed an independent interpretation of an: EKG Interpretation: I independently interpreted the EKG which reveals atrial fibrillation Vent. Rate : 98 BPM Atrial Rate : * BPM P-R Int : * ms QRS Dur : 130 ms QT Int : 402 ms P-R-T Axes : * -35 -2 degrees QTcB Int : 513 ms Atrial fibrillation Left axis deviation Right bundle branch block Abnormal ECG When compared with ECG of 22-Feb-2025 16:58, Atrial fibrillation has replaced Wide QRS rhythm CXR- cardiomegaly CT head/brain-without ICH, I agree with radiologist's impression CT C-spine- without cervical fracture, I agree with radiologist's impression Radiology Impression Discussion of test interpretation with radiology: I have reviewed the radiologist's reading. Radiologist Impression: CXR Findings: There are small bilateral pleural effusions. Possible left hemidiaphragm calcifications. Mild left basilar opacities likely secondary to atelectasis. Heart size is normal. The heart is enlarged. The aorta is elongated. There has been a prior sternotomy. There is an esophageal stent. No acute fracture. There is a right-sided Port-A-Cath with its tip at the cavoatrial junction. IMPRESSION: Small bilateral pleural effusions. This document has been electronically signed by: Ruby Nguyen MD on 02/22/2025 18:22:52 CT head/brain Findings: No intra-axial mass, midline shift, hydrocephalus, or acute hemorrhage. There is moderate diffuse atrophy. There is no sinus or mastoid fluid. The orbits are within normal limits. There is no acute fracture. IMPRESSION: 1. No acute intracranial findings. This document has been electronically signed by: Chevy Tracey MD on 02/22/2025 19:02:56 Dictated By: Chevy Tracey MD Signed By: <Electronically signed by Chevy Tracey MD in OV> 02/22/25 1904 External Record Review External record reviewed: Inpatient record, Office record and Outpatient record Chronic Conditions Patient?s care impacted by: Other (CAD, AFib, HLD, GERD,) Discharge Plan Discharge Clinical Impression: Postural dizziness Patient Disposition: Home, Self-Care Instructions: Near Syncope (ED), Dizziness (ED) Additional Instructions: You were evaluated in the ED today after a fall where you hit your head. Your labs did not show any evidence of infection. Your EKG showed atrial fibrillation which you already have a diagnosis of, your troponin which is an enzyme your heart gives off if undergoing stress or damage did not show positive elevation. Your urinary analysis did not show evidence of infection. Your physical exam did not reveal any neurological deficits. The CT of your head/brain did not reveal skull fracture or brain bleed, CT of your cervical spine did not show any fracture in your neck. Your chest x-ray revealed an enlarged heart silhouette, with small bilateral pleural effusions-this means you have some fluid on your lungs. I recommend that you follow up with your PCP, you should call their office tomorrow to see if you can get an appointment with them to ensure improvement. At this time I believe your dizziness and fall was due to sudden postural change. Please return to the emergency department if you experience worsening dizziness, lightheadedness, headache, nausea, vomiting, fevers, increased difficulty walking, increased shortness of breath, chest pain, or any new/worsening/concerning symptoms. Prescriptions: No Action temazepam 15 mg capsule 15 mg PO BEDTIME PRN (Reason: sleep) Qty: 90 3RF aspirin 81 mg tablet,delayed release (DR/EC) 81 mg PO DAILY Qty: 90 3RF furosemide 20 mg tablet 20 mg PO DAILY Qty: 90 3RF isosorbide mononitrate 30 mg tablet extended release 24 hr 30 mg PO DAILY Qty: 90 3RF pantoprazole 40 mg tablet,delayed release (DR/EC) 40 mg PO DAILY@0630 Qty: 90 3RF Print Language: Citizen [place]
--- NOTE | 2025-02-22 16:44 | ECG_ITS ---
Test Reason : weakness Blood Pressure : */* mmHG Vent. Rate : 98 BPM Atrial Rate : * BPM P-R Int : * ms QRS Dur : 130 ms QT Int : 402 ms P-R-T Axes : * -35 -2 degrees QTcB Int : 513 ms Atrial fibrillation Left axis deviation Right bundle branch block Abnormal ECG When compared with ECG of 22-Feb-2025 16:58, Atrial fibrillation has replaced Wide QRS rhythm Referred By: Gabriella Tello Electronically Signed By: José Miguel Pollack
--- OUTSIDE RECORDS SUMMARY | 2025-02-22 17:11 | XMS_ITS | Clinical Summary ---
Author Organization [facility] Address [address] [facility] [address] [place] [address] Care Team Providers Care Mail List Librarian Name Role Phone Unavailable Primary Care Provider Unavailabl e Immunizations Immunization Administration Dates Next Due DTaP, Unspecified 11/25/2012 Influenza, IIV3, injectable 04/02/2019 Influenza, Unspecified 04/02/2020 Novel [id number], all formulations 2009 Pfizer Covid-19 Vaccine 12+ 04/25/2024 Pneumococcal Conjugate PCV 13 08/17/2014 Pneumococcal, Unspecified 11/01/2003 Td (adult), unspecified 05/08/2004 Zoster, Recombinant 09/22/2019,09/07/2018 Zoster, live 05/28/2010 Social History Tobacco Use Types Packs/Day Years Used Date Smoking Tobacco: Never Assessed Sex and Gender Information Value Date Recorded Sex Assigned at Male 04/25/2024 10:47 AM EDT Legal Sex Male 10:21 AM EDT Gender Identity Male 04/25/2024 10:47 AM EDT Sexual Orientation Don't know 04/25/2024 10 :47 AM EDT Plan of Treatment Health Maintenance Due Date Last Done Comments Depression Screening 1938 Lipid Panel 1938 SDOH Screening 1938 Alcohol/Substance Use Screening 1950 Tobacco Screening 1950 RSV Patients and Patients Aged 60 years or older (1 - 1-dose 75+ series) 2013 Pneumococcal Vaccine: 50+ Years (2 of 2 - PPSV23) 08/17/2015 08/17/2014, 11/01/2003 DTaP/Tdap/Td Vaccines (2 - Tdap) 11/25/2022 11/25/2012, 05/08/2004 COVID-19 Vaccine ( - season) 2024 04/25/2024, 11/18/2021, 05/27/2021, Additional history exists Influenza Vaccine (#1) 2025 0, 04/02/2019, 01/28/2010 Zoster Vaccines Completed 09/22/2019, 12/2018, 05/28/2010 HIB Vaccines Aged Out No longer eligi ble based on patient's age to complete this topic HPV Vaccines Aged Out No longer eligi ble based on patient's age to complete this topic Hepatitis A Vaccines Aged Out No long er eligible based on patient's age to complete this topic Hepatitis B Vaccines Aged Out No long er eligible based on patient's age to complete this topic IPV Vaccines Aged Out No longer eligi ble based on patient's age to complete this topic Meningococcal B Vaccine Aged Out No l onger eligible based on patient's age to complete this topic Meningococcal Vaccine Aged Out No bradley tarun eligible based on patient's age to complete this topic RSV under 20 months Aged Out No longe r eligible based on patient's age to complete this topic Rotavirus Vaccines Aged Out No longer eligible based on patient's age to complete this topic Insurance [facility]
--- OUTSIDE RECORDS SUMMARY | 2025-02-22 17:11 | XMS_ITS | Patient Health Record ---
Author Organization [facility] Address [address] [place] [address] Care Team Providers Care Chinchilla Machine Operator Name Role Phone Ángel (RETIRED) Rolando CANTU Primary Care Provide r Unavailable Anshul Graf Unavailable [phone] Allergies Allergen (clinical drug ingredient) Drug/Non Drug Allergy documented on EMR Reaction Allergy Type Onset Date Status Niacin Unknown Drug Allergy Active tamsulosin Flomax Unknown Drug Allergy Active Reason For Referral No Information Medications Medication SIG (Take, Route, Frequency, Duration) Notes Start Date End Date Status Temazepam 15 MG 1 capsule at bedtime as needed Orally Once a day Active Aspirin Adult Low Dose 81 MG 1 tablet Or ally Once a day for 30 day(s) Active Metoprolol Tartrate 50 MG 1 tablet with food Orally Twice a day Active Lipitor 80 MG 1 tablet Orally Once a day for 30 day(s) Active Furosemide 40 MG 1 tablet Orally Once a day Active Gabapentin 900 mg 1 tablet Orally at bedtime Active Amiodarone HCl 100 MG 1/2 tablet Orally Once a day Active Isosorbide Mononitrate ER 30 MG 1 tablet in the morning Orally Once a day for 30 day(s) Active Pantoprazole Sodium 40 MG 1 tablet Orall y twice a day Active Spironolactone 25 MG 1 tablet Orally for 30 day(s) Active Immunizations Vaccine Route Administration Date Status Comme nts Influenza Unknown 04/12/2019 Administered Social History Tobacco Use: Social History Observation Description Date Details (start date - stop date) Former Smoker NA - NA Tobacco Use/Smoking Question Answer Notes Patient is a former smoker When did you stop smoking? 55 How long has it been since you last smoked? > 10 years Alcohol Screen Question Answer Notes Did you have a drink contain ing alcohol in the past year? Yes How often did you have a dri nk containing alcohol in the past year? 4 or more times a week (4 points) How many drinks did you have on a typical day when you were drinking in the past year? 1 or 2 drinks (0 point) How often did you have 6 or more drinks on one occasion in the past year? 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) Active confirmed Problem 501826201 Gastroesophageal reflux disease with esophagitis (K21.0) Active confirmed Problem 948624123 Gastroesophageal reflux disease, esophagitis presence not specified (K21.9) Active confirmed Problem 04056907 Heme + stool (R19.5) Active confirmed Problem 649500901 Iron deficiency anemia due to chronic blood loss (D50.0) Active confirmed Problem 968467877 Microcytic anemi a (D50.9) Active confirmed Problem 03253563 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 Plan Of Treatment Pending Test Test Name Order Date IRON + IBC (FE) 08/09/2019 FERRITIN 08/09/2019 VITAMIN B12 AND FOLATE 08/09/2019 CBC w DIFF 08/09/2019 CBC w DIFF 09/12/2019 Future Test Test Name Order Date COLONOSCOPY 12/29/2012 UPPER GI ENDOSCOPY 08/09/2019 COLONOSCOPY 08/09/2019 Insurance Providers Payer Name Payer Address Payer Phone Subscriber Number Group Number Insured Name Patient Relationship to Insured Coverage Start Date Coverage End Date MEDICARE OF [place] [address] [place] [id number] QUINTON SUAREZ Self - patient is the insured MED[employer] ATT[employer] CLAIMS [address] [place] [address] [id number] QUINTON SUAREZ Self - patient is the insured Medical (General) History Medical History History ICD Code Negative screening colonoscopy in 03/2013 Tubular adenomas removed in 1994, 1997, 2001, 2007 Hyperlipidemia Kidney stones Denies DM,CVA,Lung disease,renal disease GERD--EGD in 1994 with erosi ve esophagitis and gastritis-no James's nor H.pylori HTN A.fib Sleep apnea--uses a CPAP Anemia-colonoscopy in 09/2019 was negative; EGD in 09/2019 with GAVE and esophagitis. Received Iron infusion x [address] Trammell in 10/2019, 2 u PRBC in early 12/2019, then 2 u PRBC on 01/2020 AL/pneumonia 09/2019 after th e EGD and colonoscopy--he describes a cardiac cath at [facility] with 2 blockages of the previous CABG grafts, as well as a 70% blockage and another vessel. He had a neg. stress test with Dr. Mora in 12/2019--his report describes normal systolic function and no convincing evidence of ischemia Kidney stones GAVE and anemia-he underwent [address] Wright at [facility] from December through April of 2020 with APC ablation of the GAVE. A second endoscopy revealed biopsies at the gastroesophageal junction with squamous mucosa and high-grade dysplasia--- he underwent an upper endoscopy on April 05 with mucosal resection of that area, although the pathology did not show any dysplastic changes nor any sign of James's esophagus. He will be undergoing a followup endoscopy toward the end of this year with Dr. Wright for followup as well. Surgical History Surgery Date(Month/Year) Prostate surgery for BPH 4V CABG surgery 1995 [facility] Back-L4/L5 C-spine for disc disease Left knee x 2 Hydrocele
--- OUTSIDE RECORDS SUMMARY | 2025-02-22 17:11 | XMS_ITS | Encounter Summary ---
Author Organization [facility] Address [address] [place] [address] Phone Care Team Providers Care Mortgage Consultant Name Role Phone Rolando Neal MD Primary Care Provider Encounter Details Date Type Department Care Team (Late st Contact Info) Description 07/11/2024 Procedure Pass Echo [facility] [address] [place] [address] Social History Tobacco Use Types Packs/Day Years Used Date Smoking Tobacco: Former Cigarettes 2 15.1 1 951 - [birth year]07/1965 Smokeless Tobacco: Never Alcohol Use Standard Drinks/Week Comments Not Currently 0 (1 standard drink = 0.6 oz pur e alcohol) Education Answer Date Recorded Are you interested in more education? Not on shaye e 11/27/2022 Are you concerned about learning? Not on file 11/27/2022 No 11/27/2022 No 11/27/2022 Digital Access Answer Date Recorded No 12/26/2022 No 12/26/2022 Reliable internet access at home? Not on file 12/26/2022 Device with a working camera? Not on file Intimate Partner Violence Answer Date R ecorded Are you denied basic needs s uch as food, clothing, or medical care? No 11/04/2023 In the past 12 months have y ou been in a relationship with a person who hurts, threatens, or tries to control you? No 11/04/2023 Are you denied basic needs s uch as food, clothing, or medical care? No 11/04/2023 In the past 12 months have y ou been in a relationship with a person who hurts, threatens, or tries to control you? No 11/04/2023 Sex and Gender Information Value Date Recorded Sex Assigned at Male 11/04/2023 4:05 PM EDT Legal Sex Male 10:13 PM EDT Gender Identity Male 11/04/2023 4:05 PM EDT Sexual Orientation Not on file documented as of this encounter Plan of Treatment Upcoming Encounters Date Type Department Care Team (Late st Contact Info) Description 03/13/2025 3:00 PM EDT Office Visit [facility] [address] [place] [address] 3rd Floor, [address] [place] [id number] Randolph Garcia MD [address] [place] [phone] 06/05/2025 10:20 AM EST Office Visit [facility] [address] 3[address] Floor, [address] [place] [id number] Randolph Garcia MD [address] [place] [address], [address] [address] documented as of this encounter Visit Diagnoses Not on filedocumented in this encounter Care Teams Mortgage Consultant Relationship Specialty Start Date End Date Rolando Neal MD [address] [place] [address] [address] PCP - General 05/20/17 documented as of this encounter Additional Source Comments The information contained in this document represents components of the legal health record. It is not the complete legal health record.[facility]
[2025-02-22 17:23] LABS: MANUAL DIFF FLAG NO
[2025-02-22 17:27] LABS: Hematocrit 30.2 % (42.0-52.0); Hemoglobin 10.0 g/dl (14.0-18.0); Imm Gran Abs Auto 0.04 X10*3/uL (0.00-0.03); Imm Gran Pct Auto 0.4 % (0.0-0.4); Lymphocytes Absolute Auto 0.8 X10*3/uL (1.2-4.9); Mean Corpuscular HGB Conc 33.1 g/dl (31.0-36.0); Mean Corpuscular Hemoglobin 29.8 pg (27.0-33.0); Mean Corpuscular Volume 89.9 fL (80.0-98.0); NRBC Abs Auto 0.000 X10*3/uL (0.0-0.012); NRBC Pct Auto 0.0 /100WBC (0.0-0.2); Platelet Count 207 X10*3/uL (160-400); Red Blood Count 3.36 X10*6/uL (4.60-5.80); White Blood Count 9.2 X10*3/uL (4.8-10.8)
[2025-02-22 17:39] LABS: Alanine Aminotransferase 12 U/L (0-40); Albumin Level 3.5 g/dL (3.5-5.0); Alkaline Phosphatase 193 U/L (39-117); Anion Gap 12 (12-20); Aspartate Amino Transferase 28 U/L (5-37); Blood Urea Nitrogen 19 mg/dL (9-16); Calcium 8.4 mg/dL (8.4-10.2); Carbon Dioxide 30 mmol/L (22-29); Chloride 93 mmol/L (96-108); Creatinine Clr Calc Pharmacy 67.2; Estimated Glomerular Filt Rate > 60; Potassium 3.5 mmol/L (3.3-5.1); Sodium 131 mmol/L (135-145); Total Protein 6.9 g/dL (6.5-8.0)
[2025-02-22 17:45] LABS: B Type Natriuretic Peptide 575 pg/mL (<100)
[2025-02-22 17:47] LABS: Troponin-I High Sensitivity 17.9 ng/L (<3.5-35.0)
--- NOTE | 2025-02-22 18:49 | PC.NURSE ---
verbal order from the provider to hold the fluids at this time, pt is reporting sob
[2025-02-22 21:20] LABS: Troponin-I High Sensitivity 22.6 ng/L (<3.5-35.0)
--- NOTE | 2025-02-22 21:21 | MHC.EDTECH ---
Addendum entered by Val Reinoso 02/22/25 21:24: pt HR from 100-115 Original Note: ambulation trial completed at this time. pt O2 primary 90%-92%. Pt O2 dipping to 88% and reaching 94% for brief periods. Pt reports some SOB. pt states he feels stable at his baseline with walker. pt walked with steady slow gait. denies any dizziness
[2025-02-22 21:34] LABS: Appearance Urine Clear; Glucose Urine UA Negative (Negative); PH 7.5 (5.0-9.0); Specific Gravity - Urine 1.020 (1.005-1.025); UMIC TRIGGER UACC YES
--- NOTE | 2025-02-22 22:27 | PC.NURSE ---
Gabriella CARBAJAL was aware of ambulation trial results, pt denies feeling out of norm states feels at baseline currently. orthos as documented Gabriella CARBAJAL aware. pt is adamantly requesting discharge. awaiting PA to determine plan of care.
== END 2025-02-22 22:51 | disposition home or self-care (01) ==
PROVIDERS: Emergency Provider Emergency Medicine; PCP Internal Medicine
DX: R42 Dizziness and giddiness (principal); E86.0 Dehydration; S40.022A Contusion of left upper arm, initial encounter; I10 Essential (primary) hypertension; I48.91 Unspecified atrial fibrillation; I45.10 Unspecified right bundle-branch block; S40.021A Contusion of right upper arm, initial encounter; X58.XXXA Exposure to other specified factors, initial encounter; Y93.89 Activity, other specified; Y92.89 Other specified places as the place of occurrence of the external cause; Z79.899 Other long term (current) drug therapy
CPT/HCPCS: 36415; 70450; 71045; 72125; 80053; 81001; 82550; 83880; 84484; 85025; 93005; 99284; 99285; J7120

== ENCOUNTER → 2025-02-22 16:44 | Outpatient (BNV) | payer MEDICARE, SELFPAY | PROVIDERS: Emergency Provider Emergency Medicine; PCP Internal Medicine; Visit Provider Internal Medicine Cardiovascular Disease | DX: I48.91 Unspecified atrial fibrillation (principal); I45.10 Unspecified right bundle-branch block | CPT/HCPCS: 93010 ==

== ENCOUNTER → 2025-02-22 17:04 | Outpatient (BNV) | payer MEDICARE, SELFPAY | PROVIDERS: Emergency Provider Emergency Medicine; PCP Internal Medicine; Visit Provider Radiology Diagnostic Radiology | DX: M47.812 Spondylosis without myelopathy or radiculopathy, cervical region (principal); G31.9 Degenerative disease of nervous system, unspecified; J90 Pleural effusion, not elsewhere classified | CPT/HCPCS: 70450; 72125 ==